=== PATIENT | male | born 1975 | race Caucasian/White ===

== ENCOUNTER 2016-08-11 22:49 | Emergency (ER) | payer BC ==
[~2016-08-11] VITALS: Ht 175.3 cm; Wt 99.8 kg
[2016-08-12] MEDS ORDERED: fentaNYL PF VIAL 100 MCG/2 ML VIAL IV PRN (00:45)
[2016-08-12] MEDS ORDERED: IV NORMAL SALINE 1000ML BAG 1,000 ML IV SCH (01:00)
--- NOTE | 2016-08-12 01:20 | PHYS DOC ---
Past Medical History Past Medical History: Diabetes-Type II, Hypertension Past Surgical History: Tonsillectomy Alcohol Use: None Drug Use: None Adult General Chief Complaint Chief Complaint: TOE PROBLEM HPI HPI Patient is a 41 year old male who presents with complaint of infection to his right second toe. Patient states that he started noticing problems at the toe approximately one week ago. Patient states that he started having an area of redness at the tip of his toe. Patient states that after week he has been having worsening redness and ulceration that is formed along the end of his toe. Patient has had discoloration that extends towards the base of his right second toe. Patient states over the past few days he has been developing body aches, chills, and has had subjective fevers. Patient denies chest pain or abdominal pain and has had no nausea or vomiting. Patient is type II diabetic and states that his sugars have been running in the "120s." Patient has not taken any medications to help with the symptoms at this time. Review of Systems Review of Systems Constitutional: Subjective fever, chills [] Eyes: Denies change in visual acuity, redness, or eye pain [] HENT: Denies nasal congestion or sore throat [] Respiratory: Denies cough or shortness of breath [] Cardiovascular: Denies chest pain or edema [] GI: Denies abdominal pain, nausea, vomiting, bloody stools or diarrhea [] : Denies dysuria or hematuria [] Musculoskeletal: Pain to right second toe, bodyaches [] Integument: Denies rash or skin lesions [] Neurologic: Denies headache, focal weakness or sensory changes [] Current Medications Current Medications Current Medications Medications (Trade) Dose Ordered Sig/Sumi Start Time Stop Time Status Last Admin Dose Admin Cephalexin HCl (Keflex) 500 mg 1X ONCE 08/12/16 03:30 08/12/16 03:31 DC 08/12/16 03:30 500 MG Doxycycline Hyclate (Vibra-Tab) 100 mg 1X ONCE 08/12/16 03:30 08/12/16 03:31 DC 08/12/16 03:30 100 MG Fentanyl Citrate (Fentanyl 2ml Vial) 50 mcg PRN Q15MIN PRN 08/12/16 00:45 08/12/16 03:43 DC 08/12/16 01:54 50 MCG Sodium Chloride (Iv Sodium Chloride 0.9% 1000ml Bag) 1,000 ml @ 1,000 mls/hr Q1H 08/12/16 01:00 08/12/16 01:59 DC 08/12/16 01:54 1,000 MLS/HR Allergies Allergies Allergies Coded Allergies Type Severity Reaction Last Updated Verified No Known Drug Allergies 08/11/16 No Physical Exam Physical Exam Constitutional: Alert, afebrile, no acute distress. [] HENT: Normocephalic, atraumatic, bilateral external ears normal, oropharynx moist, no oral exudates, nose normal. [] Eyes: PERRLA, EOMI, conjunctiva normal, no discharge. [] Neck: Normal range of motion, no tenderness, supple, no stridor. [] Cardiovascular: Tachycardia, regular rhythm, no murmur [] Lungs & Thorax: Bilateral breath sounds clear to auscultation [] Abdomen: Bowel sounds normal, soft, no tenderness, no masses, no pulsatile masses. [] Skin: Warm, dry, no erythema, no rash. [] Back: No tenderness, no CVA tenderness. [] Extremities: Distal ulceration to right second toe with redness and swelling extending proximally to the base of the right second toe, no swelling or lymphangitic streaking along the mid foot. [] Neurologic: Alert and oriented X 3, normal motor function, normal sensory function, no focal deficits noted. [] Current Patient Data Vital Signs Vital Signs Date Time Temp Pulse Resp B/P Pulse Ox O2 Delivery O2 Flow Rate FiO2 08/12/16 03:00 92 120/78 95 Room Air 08/11/16 23:40 98.4 98.4 08/11/16 22:54 16 Lab Values Laboratory Tests Test 08/12/16 00:59 08/12/16 02:47 White Blood Count 9.1x10^3/uL (4.0-11.0) Red Blood Count 5.01x10^6/uL (4.30-5.70) Hemoglobin 14.3g/dL (13.0-17.5) Hematocrit 41.7% (39.0-53.0) Mean Corpuscular Volume 83fL (79-100) Mean Corpuscular Hemoglobin 29pg (25-35) Mean Corpuscular Hemoglobin Concent 34g/dL (31-37) Red Cell Distribution Width 13.0% (11.5-14.5) Platelet Count 183x10^3/uL (140-400) Neutrophils (%) (Auto) 60% (31-73) Lymphocytes (%) (Auto) 28% (24-48) Monocytes (%) (Auto) 11% (0-9) H Eosinophils (%) (Auto) 1% (0-3) Basophils (%) (Auto) 1% (0-3) Neutrophils # (Auto) 5.4x10^3uL (1.8-7.7) Lymphocytes # (Auto) 2.6x10^3/uL (1.0-4.8) Monocytes # (Auto) 1.0x10^3/uL (0.0-1.1) Eosinophils # (Auto) 0.1x10^3/uL (0.0-0.7) Basophils # (Auto) 0.0x10^3/uL (0.0-0.2) Sodium Level 139mmol/L (136-145) Potassium Level 3.6mmol/L (3.5-5.1) Chloride Level 102mmol/L (98-107) Carbon Dioxide Level 30mmol/L (21-32) Anion Gap 7 (6-14) Blood Urea Nitrogen 19mg/dL (8-26) Creatinine 1.1mg/dL (0.7-1.3) Estimated GFR (Cockcroft-Gault) 74.5 BUN/Creatinine Ratio 17 (6-20) Glucose Level 174mg/dL (70-99) H Lactic Acid Level 0.9mmol/L (0.4-2.0) Calcium Level 8.8mg/dL (8.5-10.1) Total Bilirubin 1.4mg/dL (0.2-1.0) H Aspartate Amino Transferase (AST) 17U/L (15-37) Alanine Aminotransferase (ALT) 28U/L (16-63) Alkaline Phosphatase 63U/L (46-116) Total Protein 7.4g/dL (6.4-8.2) Albumin 3.5g/dL (3.4-5.0) Albumin/Globulin Ratio 0.9 (1.0-1.7) L Urine Collection Type Unknown Urine Color Yellow Urine Clarity Clear Urine pH 6.0 Urine Specific [place] >=1.030 Urine Protein Negativemg/dL (NEG-TRACE) Urine Glucose (UA) Negativemg/dL (NEG) Urine Ketones (Stick) Negativemg/dL (NEG) Urine Blood Negative (NEG) Urine Nitrite Negative (NEG) Urine Bilirubin Small (NEG) Urine Urobilinogen Dipstick 2.0mg/dL (0.2 mg/dL) Urine Leukocyte Esterase Negative (NEG) Urine RBC 0/HPF (0-2) Urine WBC Occ/HPF (0-4) Urine Squamous Epithelial Cells Few/LPF Urine Bacteria 0/HPF (0-FEW) Urine Mucus Marked/LPF Laboratory Tests 08/12/16 00:59 Laboratory Tests 08/12/16 00:59 EKG EKG Not performed [] Radiology/Procedures Radiology/Procedures 3 view right foot x-ray interpreted by me: Mild soft tissue swelling along second toe, no gas formation in soft tissues, no fractures [] Course & Med Decision Making Course & Med Decision Making Pertinent Labs and Imaging studies reviewed. (See chart for details) Patient was given IV fluids in the emergency department. The patient's blood work does not show evidence of sepsis at this time. Patient's diabetic ulcer is consistent with uncomplicated infected diabetic ulcer and is appropriate for outpatient treatment at this time. The patient was started on doxycycline and Keflex in the emergency department. Patient will continue on 10 day course of treatment. Advised follow-up with primary doctor in the next 3 days and return to emergency department for any worsening symptoms. Patient voiced understanding and in agreement with treatment plan. Dragon Disclaimer Dragon Disclaimer This electronic medical record was generated, in whole or in part, using a voice recognition dictation system. Departure Departure Impression: Primary Impression: Diabetic ulcer of toe Disposition: HOME, SELF-CARE Condition: STABLE Referrals: ISIS BENITEZ (PCP) Patient Instructions: Cellulitis, Skin Ulcer Additional Instructions: Follow-up in 3 days with your primary doctor. Return to the emergency department for any worsening symptoms. Scripts Cephalexin (Keflex)500 Mg [id number] Mg PO QID #40 CAP Prov:JESSICA DEVRIES MD 08/12/16 Doxycycline Hyclate 100 Mg Capsule1 Cap PO BID #20 CAP Prov:JESSICA DEVRIES MD 08/12/16 JESSICA DEVRIES MD Aug 12, 2016 01:20
[2016-08-12 01:21] LABS: RED BLOOD COUNT 5.01 x10^6/uL (4.30-5.70); WHITE BLOOD COUNT 9.1 x10^3/uL (4.0-11.0)
[2016-08-12 01:22] LABS: BASO % 1 % (0-3); EOS % 1 % (0-3); HEMATOCRIT 41.7 % (39.0-53.0); HEMOGLOBIN 14.3 g/dL (13.0-17.5); LYMPH # 2.6 x10^3/uL (1.0-4.8); LYMPH % 28 % (24-48); MEAN CORPUSCULAR HEMOGLOBIN 29 pg (25-35); MEAN CORPUSCULAR HGB CONC 34 g/dL (31-37); MEAN CORPUSCULAR VOLUME 83 fL (79-100); MONO % 11 % (0-9); NEUT % 60 % (31-73); PLATELET COUNT 183 x10^3/uL (140-400)
[2016-08-12 01:39] LABS: ALBUMIN 3.5 g/dL (3.4-5.0); ALBUMIN/GLOBULIN RATIO 0.9 (1.0-1.7); CALCIUM 8.8 mg/dL (8.5-10.1); TOTAL PROTEIN 7.4 g/dL (6.4-8.2)
[2016-08-12 01:40] LABS: CREATININE 1.1 mg/dL (0.7-1.3); GFR 74.5; POTASSIUM 3.6 mmol/L (3.5-5.1); TOTAL BILIRUBIN 1.4 mg/dL (0.2-1.0)
[2016-08-12 02:57] LABS: BILIRUBIN,URINE SMALL (NEG); GLUCOSE,URINE NEGATIVE (NEG); NITRITE,URINE NEGATIVE (NEG); PROTEIN,URINE NEGATIVE (NEG-TRACE)
[2016-08-12 02:59] LABS: BACTERIA,URINE 0 /HPF (0-FEW); RBC,URINE 0 /HPF (0-2); SQUAMOUS EPITHELIAL CELL,UR FEW /LPF; WBC,URINE OCC /HPF (0-4)
[2016-08-12 03:00] VITALS: BP 120/78
[2016-08-12] MEDS ORDERED: CEPH-264 PO (03:03)
[2016-08-12] MEDS ORDERED: DOXY100C2 PO (03:03)
[2016-08-12] MEDS ORDERED: CEPHALEXIN 250 MG CAPSULE. PO ONE (03:30)
[2016-08-12] MEDS ORDERED: DOXYCYCLINE HYCLATE 100 MG TABLET PO ONE (03:30)
--- NOTE | 2016-08-12 07:57 | RAD ---
Three-view study of the right foot Indications: Toe infection of the second digit. Findings: There is some soft tissue swelling of the second digit. No osteolysis is seen. No acute fracture or dislocation is seen. No soft tissue air is seen. IMPRESSION: No acute osseous abnormality is seen.
--- NOTE | 2016-08-13 07:40 | VNOTE ---
CALL BACK NOTE CALL BACK Microbiology 08/12/16 Blood Culture - Final, Complete Lab notified physician of prelim positive blood culture in 1 of 4 bottles; gram positive cocci in chains suggestive of staph. He was seen within past 12 hours in emergency department and discharged with antibiotics to follow up closely. Will await further cultures prior to call back as this is concerning for contamination. Sayra SONI MD Aug 13, 2016 07:40
--- NOTE | 2016-08-13 14:07 | VNOTE ---
CALL BACK NOTE CALL BACK Microbiology 08/12/16 Blood Culture - Final, Complete Second blood culture has come back concerning for staph. Called patient and notified of need for admission for diabetic foot ulcer with bacteremia and he agrees with this plan. Discussed case with Dr. Cleaning, who will admit. Discussed case with nursing enginehouse brakeman who confirms bed space. Discussed case with ED staff to assist direct admit. He will be directly admitted. Sayra SONI MD Aug 13, 2016 14:07
[2016-08-13] MEDS ORDERED: DULA0.75 SQ (15:12)
[2016-08-13] MEDS ORDERED: LISI-338 PO (15:12)
[2016-08-13] MEDS ORDERED: ATOR10TA60 PO (16:32)
== END 2016-08-12 03:42 | disposition home or self-care (01) ==
LOC: ER 22:49
DX: L97.519 Non-pressure chronic ulcer of other part of right foot with unspecified severity (principal); I10 Essential (primary) hypertension
CPT/HCPCS: 36415; 73630; 80053; 81001; 83605; 85027; 87040; 87205; 96361; 96374; 99285; J3010; J7030

== ENCOUNTER 2016-08-13 14:14 | Inpatient (IN) | payer BC ==
[~2016-08-13] VITALS: Ht 175.3 cm; Wt 98.9 kg
[~2016-08-13 14:14] MED LIST: CEPH-264 PO; DOXY100C2 PO
[2016-08-13 15:00] VITALS: BP 132/86
[2016-08-13] MEDS ORDERED: LISI-338 PO (15:12)
[2016-08-13] MEDS ORDERED: DULA0.75 SQ (15:12)
[2016-08-13] MEDS ORDERED: ATOR10TA60 PO (16:32)
[2016-08-13 16:40] LABS: BASO % 0 % (0-3); EOS % 2 % (0-3); HEMATOCRIT 49.4 % (39.0-53.0); HEMOGLOBIN 16.9 g/dL (13.0-17.5); LYMPH # 2.2 x10^3/uL (1.0-4.8); LYMPH % 27 % (24-48); MEAN CORPUSCULAR HEMOGLOBIN 29 pg (25-35); MEAN CORPUSCULAR HGB CONC 34 g/dL (31-37); MEAN CORPUSCULAR VOLUME 84 fL (79-100); MONO % 10 % (0-9); NEUT % 61 % (31-73); PLATELET COUNT 196 x10^3/uL (140-400); RED BLOOD COUNT 5.92 x10^6/uL (4.30-5.70); WHITE BLOOD COUNT 7.9 x10^3/uL (4.0-11.0)
[2016-08-13 16:53] LABS: C-REACTIVE PROTEIN 18.3 mg/L (0-3.3); CALCIUM 9.5 mg/dL (8.5-10.1); CREATININE 1.1 mg/dL (0.7-1.3); GFR 74.5
--- NOTE | 2016-08-13 16:55 | PDOC1 ---
History and Physical Family History Family History: Diabetes Social History ALCOHOL: none Drugs: None Current Medications Current Medications Current Medications Medications (Trade) Dose Ordered Sig/Sumi Start Time Stop Time Status Last Admin Dose Admin Ceftriaxone Sodium/Sodium Chloride (Rocephin/Iv Sodium Chloride 0.9% 50ml) 50 ml @ 100 mls/hr Q24H 08/13/16 16:00 08/13/16 16:12 100 MLS/HR Vancomycin HCl 1 each 1 each PRN DAILY PRN 08/13/16 15:15 Allergies Allergies Allergies Coded Allergies Type Severity Reaction Last Updated Verified No Known Drug Allergies 08/11/16 No ROS Review of System CONSTITUTIONAL: No fever or chills EYES: No recent changes SKIN: blisters in toe nails CARDIOVASCULAR: No chest pain, syncope, palpitations, or edema RESPIRATORY: No SOB or cough GASTROINTESTINAL: No nausea, vomiting or abdominal pain NEUROLOGICAL: No headaches or weakness ENDOCRINE: No cold or heat intolerance GENITOURINARY: No urgency or frequency of urination MUSCULOSKELETAL: No back pain or joint pain LYMPHATICS: No enlarged lymph nodes PSYCHIATRIC: No anxiety or depression Physical Exam Physical Exam GEN.: No apparent distress. Alert and oriented. HEENT: Head is normocephalic, atraumatic NECK: Supple. no JVD LUNGS: Clear to auscultation. normal airflow HEART: RRR, S1, S2 present. Peripheral pulses intact ABDOMEN: Soft, nontender. Positive bowel sounds. EXTREMITIES: R 2ng great toe, tip ulcer, no nail NEUROLOGIC: Normal speech, normal tone PSYCHIATRIC: Normal affect, normal mood. SKIN: Vitals Vitals Vital Signs Date Time Temp Pulse Resp B/P Pulse Ox O2 Delivery O2 Flow Rate FiO2 08/13/16 15:00 98.2 104 18 132/86 100 Room Air 98.2 Labs Labs Laboratory Tests Test 08/13/16 16:20 08/13/16 16:22 White Blood Count 7.9x10^3/uL (4.0-11.0) Red Blood Count 5.92x10^6/uL (4.30-5.70) Hemoglobin 16.9g/dL (13.0-17.5) Hematocrit 49.4% (39.0-53.0) Mean Corpuscular Volume 84fL (79-100) Mean Corpuscular Hemoglobin 29pg (25-35) Mean Corpuscular Hemoglobin Concent 34g/dL (31-37) Red Cell Distribution Width 13.0% (11.5-14.5) Platelet Count 196x10^3/uL (140-400) Neutrophils (%) (Auto) 61% (31-73) Lymphocytes (%) (Auto) 27% (24-48) Monocytes (%) (Auto) 10% (0-9) Eosinophils (%) (Auto) 2% (0-3) Basophils (%) (Auto) 0% (0-3) Neutrophils # (Auto) 4.8x10^3uL (1.8-7.7) Lymphocytes # (Auto) 2.2x10^3/uL (1.0-4.8) Monocytes # (Auto) 0.8x10^3/uL (0.0-1.1) Eosinophils # (Auto) 0.2x10^3/uL (0.0-0.7) Basophils # (Auto) 0.0x10^3/uL (0.0-0.2) Glucose (Fingerstick) 140mg/dL (70-99) Laboratory Tests Test 08/13/16 16:20 08/13/16 16:22 White Blood Count 7.9x10^3/uL (4.0-11.0) Red Blood Count 5.92x10^6/uL (4.30-5.70) Hemoglobin 16.9g/dL (13.0-17.5) Hematocrit 49.4% (39.0-53.0) Mean Corpuscular Volume 84fL (79-100) Mean Corpuscular Hemoglobin 29pg (25-35) Mean Corpuscular Hemoglobin Concent 34g/dL (31-37) Red Cell Distribution Width 13.0% (11.5-14.5) Platelet Count 196x10^3/uL (140-400) Neutrophils (%) (Auto) 61% (31-73) Lymphocytes (%) (Auto) 27% (24-48) Monocytes (%) (Auto) 10% (0-9) Eosinophils (%) (Auto) 2% (0-3) Basophils (%) (Auto) 0% (0-3) Neutrophils # (Auto) 4.8x10^3uL (1.8-7.7) Lymphocytes # (Auto) 2.2x10^3/uL (1.0-4.8) Monocytes # (Auto) 0.8x10^3/uL (0.0-1.1) Eosinophils # (Auto) 0.2x10^3/uL (0.0-0.7) Basophils # (Auto) 0.0x10^3/uL (0.0-0.2) Glucose (Fingerstick) 140mg/dL (70-99) VTE Prophylaxis Ordered VTE Prophylaxis Devices: Yes VTE Pharmacological Prophylaxi: Yes MARLON ROSA MD Aug 13, 2016 16:54
[2016-08-13] MEDS: INSULIN ASPART 300 UNITS/3 ML INSULN.PEN SQ SCH (16:57)
[2016-08-13] MEDS ORDERED: ONDANSETRON PF 4 MG/2 ML VIAL. IV PRN (17:00)
[2016-08-13] MEDS ORDERED: DEXTROSE 50% 25 GM / 50ML DISP.SYRIN. IV PRN (17:00)
[2016-08-13] MEDS ORDERED: ALBUTEROL SULFATE 2.5 MG/3 ML NEBU. NEB PRN (17:00)
[2016-08-13] MEDS ORDERED: hydrALAZINE 20 MG/ML VIAL. IVP PRN (17:00)
[2016-08-13] MEDS ORDERED: VANCOMYCIN 2 GM in IV NORMAL SALINE 500ML BAG 500 ML IV ONE (17:00)
[2016-08-13] MEDS ORDERED: ACETAMINOPHEN 325 MG TABLET. PO PRN (17:00)
[2016-08-13] MEDS ORDERED: HYDROCODONE/APAP 5/325MG TABLET. PO PRN (17:00)
[2016-08-13] MEDS: ENOXAPARIN 40 MG/0.4 ML SYRINGE. SQ SCH (17:11)
[2016-08-13] MEDS: VANCOMYCIN PER PHARMACY MC PRN (17:25)
--- NOTE | 2016-08-13 18:14 | HP ---
ADMIT DATE: 08/13/2016 CHIEF COMPLAINT: Diabetic foot ulcer with positive bacteremia. HISTORY OF THE PRESENT ILLNESS: A 41-year-old male patient who presented to [facility] ER 2 days ago for right toe diabetic foot ulcer. At that time, he had blood cultures drawn which were positive for gram-positive bacteremia suggesting Staphylococcus, and the patient was requested to come to the hospital for IV antibiotics. Reportedly, the patient has a few weeks of right toe ulcer developing as blisters and healing which has been happening for a long time. However, on the second toe, he lost his nail, and the wound got worse within a couple of days. He denies any fevers or chills. However, his diabetes is not controlled. HbA1c is probably more than 10, and average blood sugars around 250. He also has a history of hypertension. He is not taking any insulin currently. He is taking medications once a week. PAST MEDICAL HISTORY: Hypertension and diabetes. PERSONAL HISTORY: No smoking, no alcohol, no drug abuse. FAMILY HISTORY: Mother had diabetes. ALLERGIES: NKDA. REVIEW OF SYSTEMS: Please see my electronic H and P. PHYSICAL EXAMINATION: Please see my electronic H and P. LABORATORY FINDINGS: CBC within normal limits. Chemistries: Blood sugars 140. ESR, CRP, and HbA1c are pending. ASSESSEMENT AND PLAN: 1. Diabetic second toe ulcer with positive bacteremia, suspected Staphylococcus aureus. 2. Type 2 diabetes mellitus. 3. Hypertension. PLAN: 1. He has been admitted for IV antibiotics. He was started on vancomycin renal dosing and Infectious Disease was consulted, and also we will start him on IV Rocephin. 2. HbA1c and BMP are pending. 3. Foot x-ray is ordered. 4. Wound team is consulted. 5. Pain control with hydrocodone p.r.n. 6. Deep venous thrombosis prophylaxis with Lovenox. 7. Sliding scale insulin for hyperglycemia and hold home medications. 8. P.r.n. hydralazine for hypertension. 9. Plan was explained to the patient and family members who are at bedside. Agreed with the current plan. MARLON RSOA MD DR: AMADOU/tamra JOB#: [id number] / [id number]
[2016-08-13 19:00] VITALS: BP 131/81
[2016-08-13] MEDS: ATORVASTATIN CALCIUM 10 MG TABLET. PO SCH (21:30)
[2016-08-13 23:00] VITALS: BP 106/65
[2016-08-14] MEDS: VANCOMYCIN 1.5 GM in IV NORMAL SALINE 500ML BAG 500 ML IV SCH ×4 (00:58→17:51)
[2016-08-14 03:00] VITALS: BP 97/67
[2016-08-14] MEDS ORDERED: diphenhydrAMINE HCL 25 MG CAPSULE PO ONE (04:15)
[2016-08-14 05:15] LABS: BASO % 0 % (0-3); EOS % 3 % (0-3); HEMATOCRIT 42.7 % (39.0-53.0); HEMOGLOBIN 14.7 g/dL (13.0-17.5); LYMPH # 2.4 x10^3/uL (1.0-4.8); LYMPH % 36 % (24-48); MEAN CORPUSCULAR HEMOGLOBIN 28 pg (25-35); MEAN CORPUSCULAR HGB CONC 34 g/dL (31-37); MEAN CORPUSCULAR VOLUME 83 fL (79-100); MONO % 9 % (0-9); NEUT % 52 % (31-73); PLATELET COUNT 191 x10^3/uL (140-400); RED BLOOD COUNT 5.17 x10^6/uL (4.30-5.70); RED CELL DISTRIBUTION WIDTH 13.2 % (11.5-14.5); WHITE BLOOD COUNT 6.7 x10^3/uL (4.0-11.0)
[2016-08-14 05:54] LABS: CALCIUM 8.7 mg/dL (8.5-10.1); CREATININE 0.9 mg/dL (0.7-1.3); GFR 93.9; POTASSIUM 4.2 mmol/L (3.5-5.1)
[2016-08-14 07:00] VITALS: BP 109/71
--- NOTE | 2016-08-14 08:23 | ACF ---
Admission Forms Criteria WOUND COMPLICATIONS Clinical Indications for Inpatient Care (Place 'X' for any and all applicable criteria): Ongoing inpatient care may be indicated for wound complications with ANY ONE of the following (1) (15): [X]I. Infection with ANY ONE of the following(32)(33): [ ]a) Temperature greater than 38.5 C (101.3 F) [ ]b) Evidence of tissue necrosis [ ]c) Erythema diameter expanding around wound despite treatment [ ]d) Mental status changes [ ]e) Dehydration [ ]f) Bacteremia [ ]g) Hemodynamic instability [ ]h) Suspected necrotizing fasciitis [ ]i) Rapidly spreading lesions [ ]j) High-risk location (eg, perineum, sternum, orbit) [X]k) High-risk coexisting clinical condition as indicated by ANY ONE of the following: [X]i) Poorly controlled diabetes [ ]ii) Cirrhosis [ ]iii) Renal failure [ ]iv) Neutropenia [ ] v) Asplenia [ ]vi) Immunosuppression (eg, AIDS, chronic corticosteroid use) [ ]viii) Other high-risk medical comorbidities [ ] II. Dehiscence requiring frequent monitoring or immediate treatment [ ] III. Hematoma with ANY ONE of the following: [ ]a) Hemodynamic instability or acute anemia due to rapid development of hematoma [ ]b) Neck hematoma causing airway compression [ ]c) Retroperitoneal hematoma [ ]d) Uncontrolled coagulopathy [ ]IV. Seroma with evidence of secondary infection and requirement for IV antibiotics [D](31) [ ]V. Pain that cannot be managed at lower level of care Extended stay beyond goal length of stay for primary condition may be needed until ALL of the following are present(1)(33)(34): [ ]a) Afebrile or fever resolving [ ]b) Hemodynamic stability [ ]c) Pain resolving [ ]d) Wound closed, continuity adequately restored, or wound manageable at lower level of care [ ]e) No drain needed or drain care manageable at lower level of care [ ]f) Wound hematoma or seroma resolving [ ]g) Antibiotics not needed or regimen manageable at lower level of care(38) [ ]h) Dressing care manageable at lower level of care [ ]i) Coagulopathy absent, resolved, or treatable at lower level of care [ ]j) Medical comorbidities resolved or treatable at lower level of care The original [employer] content created by [facility] has been revised. The portions of the content which have been revised are identified through the use of italic text or in bold, and [facility] has neither reviewed nor approved the modified material. All other unmodified content is copyright [facility]. Please see references footnoted in the original [facility] edition 2016 Admission Criteria Met?: Yes BRENDA FAM August 14, 2016 08:22
--- NOTE | 2016-08-14 08:48 | RAD ---
Right foot, 3 views, 08/13/2016: History: Second toe ulcer No fracture or destructive bony lesion is seen. There are mild degenerative changes at the midfoot level. There is mild subcutaneous edema about the foot. IMPRESSION: No acute bony abnormality is detected.
[2016-08-14] MEDS: LISINOPRIL 5 MG TABLET. PO SCH (10:24)
--- NOTE | 2016-08-14 10:28 | PDOC ---
Infectious Disease Note Vital Sign Vital Signs Vital Signs Date Time Temp Pulse Resp B/P Pulse Ox O2 Delivery O2 Flow Rate FiO2 08/14/16 07:30 Room Air 08/14/16 07:00 97.5 80 16 109/71 96 97.5 Labs Lab Laboratory Tests Test 08/13/16 16:20 08/13/16 16:22 08/13/16 20:40 08/14/16 04:05 White Blood Count 7.9x10^3/uL (4.0-11.0) 6.7x10^3/uL (4.0-11.0) Red Blood Count 5.92x10^6/uL (4.30-5.70) 5.17x10^6/uL (4.30-5.70) Hemoglobin 16.9g/dL (13.0-17.5) 14.7g/dL (13.0-17.5) Hematocrit 49.4% (39.0-53.0) 42.7% (39.0-53.0) Mean Corpuscular Volume 84fL (79-100) 83fL (79-100) Mean Corpuscular Hemoglobin 29pg (25-35) 28pg (25-35) Mean Corpuscular Hemoglobin Concent 34g/dL (31-37) 34g/dL (31-37) Red Cell Distribution Width 13.0% (11.5-14.5) 13.2% (11.5-14.5) Platelet Count 196x10^3/uL (140-400) 191x10^3/uL (140-400) Neutrophils (%) (Auto) 61% (31-73) 52% (31-73) Lymphocytes (%) (Auto) 27% (24-48) 36% (24-48) Monocytes (%) (Auto) 10% (0-9) 9% (0-9) Eosinophils (%) (Auto) 2% (0-3) 3% (0-3) Basophils (%) (Auto) 0% (0-3) 0% (0-3) Neutrophils # (Auto) 4.8x10^3uL (1.8-7.7) 3.4x10^3uL (1.8-7.7) Lymphocytes # (Auto) 2.2x10^3/uL (1.0-4.8) 2.4x10^3/uL (1.0-4.8) Monocytes # (Auto) 0.8x10^3/uL (0.0-1.1) 0.6x10^3/uL (0.0-1.1) Eosinophils # (Auto) 0.2x10^3/uL (0.0-0.7) 0.2x10^3/uL (0.0-0.7) Basophils # (Auto) 0.0x10^3/uL (0.0-0.2) 0.0x10^3/uL (0.0-0.2) Erythrocyte Sedimentation Rate 12 (0-15) Sodium Level 139mmol/L (136-145) 142mmol/L (136-145) Potassium Level 4.0mmol/L (3.5-5.1) 4.2mmol/L (3.5-5.1) Chloride Level 103mmol/L (98-107) 106mmol/L (98-107) Carbon Dioxide Level 28mmol/L (21-32) 27mmol/L (21-32) Anion Gap 8 (6-14) 9 (6-14) Blood Urea Nitrogen 15mg/dL (8-26) 18mg/dL (8-26) Creatinine 1.1mg/dL (0.7-1.3) 0.9mg/dL (0.7-1.3) Estimated GFR (Cockcroft-Gault) 74.5 93.9 Glucose Level 137mg/dL (70-99) 161mg/dL (70-99) Calcium Level 9.5mg/dL (8.5-10.1) 8.7mg/dL (8.5-10.1) C-Reactive Protein, Quantitative 18.3mg/L (0-3.3) Glucose (Fingerstick) 140mg/dL (70-99) 188mg/dL (70-99) Test 08/14/16 07:23 Glucose (Fingerstick) 169mg/dL (70-99) Objective Assessment Rt second toe callous with ulcer and infection Rt second toe cellulitis with lymphangitic spread BC + G + cocci DM with poor control Plan Plan of Care vanc , ceftriaxone bs control mri toe to rule out osteo in very detail discussion done with pt and DONYA JARAMILLO MD August 14, 2016 10:28
[2016-08-14] MEDS: INSULIN ASPART 300 UNITS/3 ML INSULN.PEN SQ SCH ×3 (10:34→17:00)
[2016-08-14 11:00] VITALS: BP 117/80
--- NOTE | 2016-08-14 13:13 | PDOC ---
PROGRESS NOTES Chief Complaint Chief Complaint 1. Diabetic second toe ulcer with positive bacteremia, suspected Staphylococcus aureus. 2. Type 2 diabetes mellitus. 3. Hypertension. plan: fu with id MRI toe on ceftriaxone and vanco fu with bcx sen dm control wound care dvt ppx History of Present Illness History of Present Illness right toe pain Vitals Vitals Vital Signs Date Time Temp Pulse Resp B/P Pulse Ox O2 Delivery O2 Flow Rate FiO2 08/14/16 11:00 97.9 88 16 117/80 97 Room Air 97.9 Physical Exam General: Alert, Oriented X3, Cooperative Heart: Regular rate, Normal S1, Normal S2 Lungs: Clear Abdomen: Normal bowel sounds Extremities: Other (right 2nd toe with erythema, and ulcer) Labs LABS Laboratory Tests Test 08/13/16 16:20 08/13/16 16:22 08/13/16 20:40 08/14/16 04:05 White Blood Count 7.9x10^3/uL (4.0-11.0) 6.7x10^3/uL (4.0-11.0) Red Blood Count 5.92x10^6/uL (4.30-5.70) 5.17x10^6/uL (4.30-5.70) Hemoglobin 16.9g/dL (13.0-17.5) 14.7g/dL (13.0-17.5) Hematocrit 49.4% (39.0-53.0) 42.7% (39.0-53.0) Mean Corpuscular Volume 84fL (79-100) 83fL (79-100) Mean Corpuscular Hemoglobin 29pg (25-35) 28pg (25-35) Mean Corpuscular Hemoglobin Concent 34g/dL (31-37) 34g/dL (31-37) Red Cell Distribution Width 13.0% (11.5-14.5) 13.2% (11.5-14.5) Platelet Count 196x10^3/uL (140-400) 191x10^3/uL (140-400) Neutrophils (%) (Auto) 61% (31-73) 52% (31-73) Lymphocytes (%) (Auto) 27% (24-48) 36% (24-48) Monocytes (%) (Auto) 10% (0-9) 9% (0-9) Eosinophils (%) (Auto) 2% (0-3) 3% (0-3) Basophils (%) (Auto) 0% (0-3) 0% (0-3) Neutrophils # (Auto) 4.8x10^3uL (1.8-7.7) 3.4x10^3uL (1.8-7.7) Lymphocytes # (Auto) 2.2x10^3/uL (1.0-4.8) 2.4x10^3/uL (1.0-4.8) Monocytes # (Auto) 0.8x10^3/uL (0.0-1.1) 0.6x10^3/uL (0.0-1.1) Eosinophils # (Auto) 0.2x10^3/uL (0.0-0.7) 0.2x10^3/uL (0.0-0.7) Basophils # (Auto) 0.0x10^3/uL (0.0-0.2) 0.0x10^3/uL (0.0-0.2) Erythrocyte Sedimentation Rate 12 (0-15) Sodium Level 139mmol/L (136-145) 142mmol/L (136-145) Potassium Level 4.0mmol/L (3.5-5.1) 4.2mmol/L (3.5-5.1) Chloride Level 103mmol/L (98-107) 106mmol/L (98-107) Carbon Dioxide Level 28mmol/L (21-32) 27mmol/L (21-32) Anion Gap 8 (6-14) 9 (6-14) Blood Urea Nitrogen 15mg/dL (8-26) 18mg/dL (8-26) Creatinine 1.1mg/dL (0.7-1.3) 0.9mg/dL (0.7-1.3) Estimated GFR (Cockcroft-Gault) 74.5 93.9 Glucose Level 137mg/dL (70-99) 161mg/dL (70-99) Calcium Level 9.5mg/dL (8.5-10.1) 8.7mg/dL (8.5-10.1) C-Reactive Protein, Quantitative 18.3mg/L (0-3.3) Glucose (Fingerstick) 140mg/dL (70-99) 188mg/dL (70-99) Test 08/14/16 07:23 08/14/16 11:48 Glucose (Fingerstick) 169mg/dL (70-99) 161mg/dL (70-99) Review of Systems Review of Systems no fever, chills, sob or chest pain Comment Review of Relevant I have reviewed the following items hima (where applicable) has been applied. Labs Laboratory Tests Test 08/13/16 16:20 08/13/16 16:22 08/13/16 20:40 08/14/16 04:05 White Blood Count 7.9x10^3/uL (4.0-11.0) 6.7x10^3/uL (4.0-11.0) Red Blood Count 5.92x10^6/uL (4.30-5.70) 5.17x10^6/uL (4.30-5.70) Hemoglobin 16.9g/dL (13.0-17.5) 14.7g/dL (13.0-17.5) Hematocrit 49.4% (39.0-53.0) 42.7% (39.0-53.0) Mean Corpuscular Volume 84fL (79-100) 83fL (79-100) Mean Corpuscular Hemoglobin 29pg (25-35) 28pg (25-35) Mean Corpuscular Hemoglobin Concent 34g/dL (31-37) 34g/dL (31-37) Red Cell Distribution Width 13.0% (11.5-14.5) 13.2% (11.5-14.5) Platelet Count 196x10^3/uL (140-400) 191x10^3/uL (140-400) Neutrophils (%) (Auto) 61% (31-73) 52% (31-73) Lymphocytes (%) (Auto) 27% (24-48) 36% (24-48) Monocytes (%) (Auto) 10% (0-9) 9% (0-9) Eosinophils (%) (Auto) 2% (0-3) 3% (0-3) Basophils (%) (Auto) 0% (0-3) 0% (0-3) Neutrophils # (Auto) 4.8x10^3uL (1.8-7.7) 3.4x10^3uL (1.8-7.7) Lymphocytes # (Auto) 2.2x10^3/uL (1.0-4.8) 2.4x10^3/uL (1.0-4.8) Monocytes # (Auto) 0.8x10^3/uL (0.0-1.1) 0.6x10^3/uL (0.0-1.1) Eosinophils # (Auto) 0.2x10^3/uL (0.0-0.7) 0.2x10^3/uL (0.0-0.7) Basophils # (Auto) 0.0x10^3/uL (0.0-0.2) 0.0x10^3/uL (0.0-0.2) Erythrocyte Sedimentation Rate 12 (0-15) Sodium Level 139mmol/L (136-145) 142mmol/L (136-145) Potassium Level 4.0mmol/L (3.5-5.1) 4.2mmol/L (3.5-5.1) Chloride Level 103mmol/L (98-107) 106mmol/L (98-107) Carbon Dioxide Level 28mmol/L (21-32) 27mmol/L (21-32) Anion Gap 8 (6-14) 9 (6-14) Blood Urea Nitrogen 15mg/dL (8-26) 18mg/dL (8-26) Creatinine 1.1mg/dL (0.7-1.3) 0.9mg/dL (0.7-1.3) Estimated GFR (Cockcroft-Gault) 74.5 93.9 Glucose Level 137mg/dL (70-99) 161mg/dL (70-99) Calcium Level 9.5mg/dL (8.5-10.1) 8.7mg/dL (8.5-10.1) C-Reactive Protein, Quantitative 18.3mg/L (0-3.3) Glucose (Fingerstick) 140mg/dL (70-99) 188mg/dL (70-99) Test 08/14/16 07:23 08/14/16 11:48 Glucose (Fingerstick) 169mg/dL (70-99) 161mg/dL (70-99) Laboratory Tests Test 08/13/16 16:20 08/13/16 16:22 08/13/16 20:40 08/14/16 04:05 White Blood Count 7.9x10^3/uL (4.0-11.0) 6.7x10^3/uL (4.0-11.0) Red Blood Count 5.92x10^6/uL (4.30-5.70) 5.17x10^6/uL (4.30-5.70) Hemoglobin 16.9g/dL (13.0-17.5) 14.7g/dL (13.0-17.5) Hematocrit 49.4% (39.0-53.0) 42.7% (39.0-53.0) Mean Corpuscular Volume 84fL (79-100) 83fL (79-100) Mean Corpuscular Hemoglobin 29pg (25-35) 28pg (25-35) Mean Corpuscular Hemoglobin Concent 34g/dL (31-37) 34g/dL (31-37) Red Cell Distribution Width 13.0% (11.5-14.5) 13.2% (11.5-14.5) Platelet Count 196x10^3/uL (140-400) 191x10^3/uL (140-400) Neutrophils (%) (Auto) 61% (31-73) 52% (31-73) Lymphocytes (%) (Auto) 27% (24-48) 36% (24-48) Monocytes (%) (Auto) 10% (0-9) 9% (0-9) Eosinophils (%) (Auto) 2% (0-3) 3% (0-3) Basophils (%) (Auto) 0% (0-3) 0% (0-3) Neutrophils # (Auto) 4.8x10^3uL (1.8-7.7) 3.4x10^3uL (1.8-7.7) Lymphocytes # (Auto) 2.2x10^3/uL (1.0-4.8) 2.4x10^3/uL (1.0-4.8) Monocytes # (Auto) 0.8x10^3/uL (0.0-1.1) 0.6x10^3/uL (0.0-1.1) Eosinophils # (Auto) 0.2x10^3/uL (0.0-0.7) 0.2x10^3/uL (0.0-0.7) Basophils # (Auto) 0.0x10^3/uL (0.0-0.2) 0.0x10^3/uL (0.0-0.2) Erythrocyte Sedimentation Rate 12 (0-15) Sodium Level 139mmol/L (136-145) 142mmol/L (136-145) Potassium Level 4.0mmol/L (3.5-5.1) 4.2mmol/L (3.5-5.1) Chloride Level 103mmol/L (98-107) 106mmol/L (98-107) Carbon Dioxide Level 28mmol/L (21-32) 27mmol/L (21-32) Anion Gap 8 (6-14) 9 (6-14) Blood Urea Nitrogen 15mg/dL (8-26) 18mg/dL (8-26) Creatinine 1.1mg/dL (0.7-1.3) 0.9mg/dL (0.7-1.3) Estimated GFR (Cockcroft-Gault) 74.5 93.9 Glucose Level 137mg/dL (70-99) 161mg/dL (70-99) Calcium Level 9.5mg/dL (8.5-10.1) 8.7mg/dL (8.5-10.1) C-Reactive Protein, Quantitative 18.3mg/L (0-3.3) Glucose (Fingerstick) 140mg/dL (70-99) 188mg/dL (70-99) Test 08/14/16 07:23 08/14/16 11:48 Glucose (Fingerstick) 169mg/dL (70-99) 161mg/dL (70-99) Medications Current Medications Vancomycin HCl 1 each 1 each PRN DAILY PRN MC SEE COMMENTS Last administered on 08/13/16t 17:25; Start 08/13/16 at 15:15 Ceftriaxone Sodium/Sodium Chloride (Rocephin/Iv Sodium Chloride 0.9% 50ml) 50 ml @ 100 mls/hr Q24H IV Last administered on 08/13/16 16:12; Start 08/13/16 at 16:00 Insulin Aspart (Novolog) 0-9 UNITS TIDWMEALS SQ Last administered on 08/14/16 12:30; Start 08/13/16 at 17:00 Dextrose (Dextrose 50%-Water Syringe) 12.5 gm PRN Q15MIN PRN IV SEE COMMENTS; Start 08/13/16 at 17:00 Acetaminophen (Tylenol) 325 mg PRN Q6HRS PRN PO MILD PAIN / TEMP; Start at 17:00 Acetaminophen/ Hydrocodone Bitart (Lortab 5/325) 1 tab PRN Q6HRS PRN PO MODERATE TO SEVERE PAIN; Start 08/13/16 at 17:00 Hydralazine HCl (Apresoline) 10 mg PRN Q4HRS PRN IVP ELEVATED BP, SEE COMMENTS ; Start 08/13/16 at 17:00 Ondansetron HCl (Zofran) 4 mg PRN Q8HRS PRN IV NAUSEA/VOMITING; Start 08/13/16 at 17:00 Albuterol Sulfate 2.5 mg 2.5 mg PRN Q4HRS PRN NEB SHORTNESS OF BREATH; Start at 17:00 Vancomycin HCl/ Sodium Chloride (Iv Sodium Chloride 0.9% 500ml Bag) 500 ml @ 250 mls/hr 1X ONCE IV Last administered on 08/13/16 17:11; Start 08/13/16 at 17:00; Stop 08/13/16 at 18:59; Status DC Enoxaparin Sodium (Lovenox 40mg Syringe) 40 mg Q24H SQ Last administered on 17:11; Start 08/13/16 at 17:00 Atorvastatin Calcium (Lipitor) 10 mg HS PO Last administered on 08/13/16 21:30 ; Start 08/13/16 at 21:00 Lisinopril 5 mg 5 mg DAILY PO Last administered on 08/14/16 10:24; Start at 09:00 Vancomycin HCl/ Sodium Chloride (Iv Sodium Chloride 0.9% 500ml Bag) 500 ml @ 250 mls/hr Q8H IV Last administered on 08/14/16 10:24; Start 08/14/16 at 01:00 Vancomycin HCl 1 each 1X ONCE MC ; Start 08/14/16 at 16:30; Stop 08/14/16 at 16: 31 Diphenhydramine HCl (Benadryl) 25 mg 1X ONCE PO Last administered on 08/14/16 04:02; Start 08/14/16 at 04:15; Stop 08/14/16 at 04:16; Status DC Active Scripts Active Keflex (Cephalexin) 500 Mg Capsule 500 Mg PO QID Doxycycline Hyclate 100 Mg Capsule 1 Cap PO BID Reported Atorvastatin Calcium 10 Mg Tablet 10 Mg PO HS Lisinopril 5 Mg Tablet 5 Mg PO DAILY Trulicity (Dulaglutide) 0.75 Mg/0.5 Ml Pen.injctr 0.75 Mg SQ WEEKLY Vitals/I & O Vital Sign - Last 24 Hours 08/13/16 08/13/16 08/13/16 08/13/16 15:00 19:00 20:00 23:00 Temp 98.2 98.4 98.1 98.2 98.4 98.1 Pulse 104 108 101 Resp 18 18 18 B/P 132/86 131/81 106/65 Pulse Ox 100 97 97 O2 Delivery Room Air Room Air Room Air Room Air 08/14/16 08/14/16 08/14/16 08/14/16 03:00 07:00 07:30 10:24 Temp 98.2 97.5 98.2 97.5 Pulse 91 80 80 Resp 18 16 B/P 97/67 109/71 109/79 Pulse Ox 94 96 O2 Delivery Room Air Room Air Room Air 08/14/16 11:00 Temp 97.9 97.9 Pulse 88 Resp 16 B/P 117/80 Pulse Ox 97 O2 Delivery Room Air Intake and Output 08/13/16 08/13/16 08/14/16 14:59 22:59 06:59 Intake Total 900 ml 250 ml Balance 900 ml 250 ml FRANCES OLIVO MD August 14, 2016 13:13
[2016-08-14] MEDS ORDERED: GADOBUTROL 10 MMOL/10 ML VIAL IV ONE (14:00)
--- NOTE | 2016-08-14 15:59 | RAD ---
PROCEDURE HISTORY Nonhealing ulcer at the tip of the 2nd toe. No surgery. TECHNIQUE 10 cc Gadovist. COMPARISON None FINDINGS Abnormal marrow edema signal involving the distal phalanx of the 2nd toe with diffuse enhancement. T1 weighted images demonstrate corresponding loss of fatty marrow signal. Findings are compatible with osteomyelitis, in this clinical context. There is mild soft tissue edema and enhancement of the 1st toe and to a lesser extent the distal foot. No evidence of an organized abscess. Visualized tendons are intact. No significant tendon sheath fluid. Lisfranc ligament complex is intact. IMPRESSION Findings compatible with osteomyelitis the distal phalanx of the 2nd toe. Mild soft tissue edema or cellulitis, but no organized soft tissue abscess. Electronically signed by: Vitaly Wheeler MD (August 14, 2016 15:58:24)
[2016-08-14] MEDS: ENOXAPARIN 40 MG/0.4 ML SYRINGE. SQ SCH (17:00)
[2016-08-14] MEDS: VANCOMYCIN PER PHARMACY MC PRN (18:17)
[2016-08-14 19:30] VITALS: BP 134/84
[2016-08-14] MEDS ORDERED: INSULIN ASPART 300 UNITS/3 ML INSULN.PEN SQ ONE (22:00)
[2016-08-14] MEDS: ATORVASTATIN CALCIUM 10 MG TABLET. PO SCH (22:21)
[2016-08-14] MEDS: INSULIN DETEMIR 300 UNITS/3 ML INSULN.PEN. SQ SCH (22:26)
[2016-08-14 23:09] VITALS: BP 132/86
--- NOTE | 2016-08-15 02:02 | CONS ---
DATE OF CONSULTATION: 08/14/2016 REQUESTING PHYSICIAN: Dr. Cleaning. REASON FOR CONSULTATION: Blood culture positive and right second toe wound. HISTORY OF PRESENT ILLNESS: This is a 41-year-old gentleman who was seen in the ER with right foot wound and was discharged. The patient had a low grade fever then, he says. The patient was called in because the blood culture turned positive. The patient has this callus and ulcer on the right second toe for a while and then started having drainage and redness started spreading to the toe and into the foot. The patient is currently on vancomycin and Rocephin. The patient did have vancomycin Red man syndrome and now he has been slowed down and he is fine, does not have any rash. Denies any nausea, vomiting, diarrhea, chest pain, shortness of breath, abdominal pain, urinary symptoms or bowel symptoms. His blood sugars have not been under control until the last 2 or 3 weeks. Before that, he was running on an average 250. PAST MEDICAL HISTORY: Positive for hypertension, diabetes. SOCIAL HISTORY: Negative for smoking, alcohol or illicit drug use. ALLERGIES: No known drug allergies. CURRENT MEDICATIONS: Reviewed. REVIEW OF SYSTEMS: As per HPI. All other systems reviewed are negative. PHYSICAL EXAMINATION: GENERAL: Alert, oriented gentleman, not in any distress. VITAL SIGNS: Stable, afebrile. HEENT: NAD. NECK: Supple, no JVP. No lymphadenopathy. LUNGS: Clear. HEART: S1, S2 regular. ABDOMEN: Benign. EXTREMITIES: No edema or cyanosis. SKIN: Unremarkable except the right second toe is red. The foot redness has improved. The patient has a callus at the tip with ulcer. The depth cannot be judged, most likely does not have osteomyelitis and the nail has been destroyed. NEUROLOGIC: The patient is neurologically intact. LABORATORY DATA: White count is normal. Sed rate is 12. BUN and creatinine is normal. Foot actually was not showing any obvious bone exposure. IMPRESSION: 1. Right second toe callus and chronic ulcer with infection. 2. Right second toe cellulitis as well as lymphangitic spread into the foot. 3. Poorly controlled diabetes. 4. Low grade fever. 5. Blood culture positive with Gram-positive cocci in pairs and chains. 6. Hypertension. RECOMMENDATIONS: Recommend continue vancomycin and Rocephin for the time being. We will get MRI of the toe to make sure there is no early osteomyelitis. He wants to try to save, obviously he is only 41-year-old and detailed discussion done with him about better sugar control, weight reduction, exercise, proper dieting and we will continue to follow. Detailed discussion done with the patient and the patient's , multiple questions answered. Thank you very much, Dr. Cleaning, for giving me the opportunity to participate in this patient's care. DONYA JARAMILLO MD DR: LUIS/tamra JOB#: [id number] / [id number] RENE
[2016-08-15 03:53] VITALS: BP 132/81
[2016-08-15 06:50] LABS: CALCIUM 8.7 mg/dL (8.5-10.1); CREATININE 0.9 mg/dL (0.7-1.3); GFR 93.9; POTASSIUM 3.9 mmol/L (3.5-5.1)
[2016-08-15 07:00] VITALS: BP 118/79
[2016-08-15 07:19] LABS: BASO % 0 % (0-3); EOS % 2 % (0-3); HEMATOCRIT 42.9 % (39.0-53.0); HEMOGLOBIN 14.6 g/dL (13.0-17.5); LYMPH # 2.1 x10^3/uL (1.0-4.8); LYMPH % 28 % (24-48); MEAN CORPUSCULAR HEMOGLOBIN 28 pg (25-35); MEAN CORPUSCULAR HGB CONC 34 g/dL (31-37); MEAN CORPUSCULAR VOLUME 83 fL (79-100); MONO % 7 % (0-9); NEUT % 62 % (31-73); PLATELET COUNT 187 x10^3/uL (140-400); WHITE BLOOD COUNT 7.5 x10^3/uL (4.0-11.0)
[2016-08-15] MEDS: LISINOPRIL 5 MG TABLET. PO SCH (08:37)
[2016-08-15] MEDS: VANCOMYCIN 1.5 GM in IV NORMAL SALINE 500ML BAG 500 ML IV SCH (08:38)
[2016-08-15] MEDS: INSULIN ASPART 300 UNITS/3 ML INSULN.PEN SQ SCH ×6 (08:52→17:43)
--- NOTE | 2016-08-15 09:47 | PDOC ---
Infectious Disease Note Subjective Subjective pt feeling better ROS ROS GEN: Denies fevers, chills, sweats HEENT: Denies blurred vision, sore throat CV: Denies chest pain RESP: Denies shortness of air, cough GI: Denies n/v/d NEURO: Denies confusion, dizziness MSK: Denies weakness, joint pain/swelling Vital Sign Vital Signs Vital Signs Date Time Temp Pulse Resp B/P Pulse Ox O2 Delivery O2 Flow Rate FiO2 08/15/16 08:37 92 132/81 08/15/16 07:00 98.0 16 96 Room Air 98.0 Physical Exam PHYSICAL EXAM GENERAL: NAD, Alert HEENT: PERRL, OC/OP NECK: Supple, no JVD, no LN LUNGS: Clear HEART: S1S2, no gallop, no murmur ABD: Soft, NT, no organomegaly, no rebound EXT: No edema, no cyanosis,, rt 2 nd toe less red CLERK CASHIER: Alert, oriented x 3, no focal neurologic deficit SKIN: No rash IV: ok Labs Lab Laboratory Tests Test 08/14/16 11:48 08/14/16 16:30 08/14/16 17:17 08/14/16 21:17 Glucose (Fingerstick) 161mg/dL (70-99) 136mg/dL (70-99) 281mg/dL (70-99) Vancomycin Level Trough 33.2mcg/mL (10.0-20.0) Vancomycin Last Dose Date Vancomycin Last Dose Time 0900 Test 08/15/16 06:24 08/15/16 07:18 White Blood Count 7.5x10^3/uL (4.0-11.0) Red Blood Count 5.20x10^6/uL (4.30-5.70) Hemoglobin 14.6g/dL (13.0-17.5) Hematocrit 42.9% (39.0-53.0) Mean Corpuscular Volume 83fL (79-100) Mean Corpuscular Hemoglobin 28pg (25-35) Mean Corpuscular Hemoglobin Concent 34g/dL (31-37) Red Cell Distribution Width 13.0% (11.5-14.5) Platelet Count 187x10^3/uL (140-400) Neutrophils (%) (Auto) 62% (31-73) Lymphocytes (%) (Auto) 28% (24-48) Monocytes (%) (Auto) 7% (0-9) Eosinophils (%) (Auto) 2% (0-3) Basophils (%) (Auto) 0% (0-3) Neutrophils # (Auto) 4.6x10^3uL (1.8-7.7) Lymphocytes # (Auto) 2.1x10^3/uL (1.0-4.8) Monocytes # (Auto) 0.6x10^3/uL (0.0-1.1) Eosinophils # (Auto) 0.2x10^3/uL (0.0-0.7) Basophils # (Auto) 0.0x10^3/uL (0.0-0.2) Sodium Level 139mmol/L (136-145) Potassium Level 3.9mmol/L (3.5-5.1) Chloride Level 105mmol/L (98-107) Carbon Dioxide Level 30mmol/L (21-32) Anion Gap 4 (6-14) Blood Urea Nitrogen 17mg/dL (8-26) Creatinine 0.9mg/dL (0.7-1.3) Estimated GFR (Cockcroft-Gault) 93.9 Glucose Level 149mg/dL (70-99) Calcium Level 8.7mg/dL (8.5-10.1) Vancomycin Level Trough 9.5mcg/mL (10.0-20.0) Vancomycin Last Dose Date 08/14/16 Vancomycin Last Dose Time 1024 Glucose (Fingerstick) 158mg/dL (70-99) Objective Assessment Rt second toe callous with ulcer and infection, mri + for osteo Rt second toe cellulitis with lymphangitic spread BC + G + cocci,, contaminant DM with poor control Plan Plan of Care vanc , ceftriaxone bs control amputation vs trial of iv antibiotics to save discussed, they are going to think about it in very detail discussion done with pt and DONYA JARAMILLO MD August 15, 2016 09:47
[2016-08-15] MEDS: VANCOMYCIN PER PHARMACY MC PRN ×3 (09:59→13:49)
[2016-08-15 11:00] VITALS: BP 105/71
--- NOTE | 2016-08-15 13:07 | PDOC ---
PROGRESS NOTES Chief Complaint Chief Complaint 1. Diabetic second toe osteomyelitis with bacteremia 2. Type 2 diabetes mellitus. 3. Hypertension. plan: fu with id MRI toe done on ceftriaxone and vanco fu with bcx sen dm control wound care dvt ppx on levemir 10u qhs, aspart 5u tid, ssi will get ortho consult History of Present Illness History of Present Illness right toe pain Vitals Vitals Vital Signs Date Time Temp Pulse Resp B/P Pulse Ox O2 Delivery O2 Flow Rate FiO2 08/15/16 11:00 97.9 90 16 105/71 98 Room Air 97.9 Physical Exam General: Alert, Oriented X3, Cooperative Heart: Regular rate, Normal S1, Normal S2 Lungs: Clear Abdomen: Normal bowel sounds Extremities: Other (right 2nd toe with erythema, and ulcer) Labs LABS Laboratory Tests Test 08/14/16 16:30 08/14/16 17:17 08/14/16 21:17 08/15/16 06:24 Vancomycin Level Trough 33.2mcg/mL (10.0-20.0) 9.5mcg/mL (10.0-20.0) Vancomycin Last Dose Date 08/14/16 Vancomycin Last Dose Time 0900 1024 Glucose (Fingerstick) 136mg/dL (70-99) 281mg/dL (70-99) White Blood Count 7.5x10^3/uL (4.0-11.0) Red Blood Count 5.20x10^6/uL (4.30-5.70) Hemoglobin 14.6g/dL (13.0-17.5) Hematocrit 42.9% (39.0-53.0) Mean Corpuscular Volume 83fL (79-100) Mean Corpuscular Hemoglobin 28pg (25-35) Mean Corpuscular Hemoglobin Concent 34g/dL (31-37) Red Cell Distribution Width 13.0% (11.5-14.5) Platelet Count 187x10^3/uL (140-400) Neutrophils (%) (Auto) 62% (31-73) Lymphocytes (%) (Auto) 28% (24-48) Monocytes (%) (Auto) 7% (0-9) Eosinophils (%) (Auto) 2% (0-3) Basophils (%) (Auto) 0% (0-3) Neutrophils # (Auto) 4.6x10^3uL (1.8-7.7) Lymphocytes # (Auto) 2.1x10^3/uL (1.0-4.8) Monocytes # (Auto) 0.6x10^3/uL (0.0-1.1) Eosinophils # (Auto) 0.2x10^3/uL (0.0-0.7) Basophils # (Auto) 0.0x10^3/uL (0.0-0.2) Sodium Level 139mmol/L (136-145) Potassium Level 3.9mmol/L (3.5-5.1) Chloride Level 105mmol/L (98-107) Carbon Dioxide Level 30mmol/L (21-32) Anion Gap 4 (6-14) Blood Urea Nitrogen 17mg/dL (8-26) Creatinine 0.9mg/dL (0.7-1.3) Estimated GFR (Cockcroft-Gault) 93.9 Glucose Level 149mg/dL (70-99) Calcium Level 8.7mg/dL (8.5-10.1) Test 08/15/16 07:18 08/15/16 11:22 Glucose (Fingerstick) 158mg/dL (70-99) 135mg/dL (70-99) Review of Systems Review of Systems No fever, chills, sob or chest pain Assessment and Plan Assessmemt and Plan Problems Medical Problems: (1) Diabetic ulcer of toe Status: Acute Problems: Comment Review of Relevant I have reviewed the following items hima (where applicable) has been applied. Labs Laboratory Tests Test 08/13/16 16:20 08/13/16 16:22 08/13/16 20:40 08/14/16 04:05 White Blood Count 7.9x10^3/uL (4.0-11.0) 6.7x10^3/uL (4.0-11.0) Red Blood Count 5.92x10^6/uL (4.30-5.70) 5.17x10^6/uL (4.30-5.70) Hemoglobin 16.9g/dL (13.0-17.5) 14.7g/dL (13.0-17.5) Hematocrit 49.4% (39.0-53.0) 42.7% (39.0-53.0) Mean Corpuscular Volume 84fL (79-100) 83fL (79-100) Mean Corpuscular Hemoglobin 29pg (25-35) 28pg (25-35) Mean Corpuscular Hemoglobin Concent 34g/dL (31-37) 34g/dL (31-37) Red Cell Distribution Width 13.0% (11.5-14.5) 13.2% (11.5-14.5) Platelet Count 196x10^3/uL (140-400) 191x10^3/uL (140-400) Neutrophils (%) (Auto) 61% (31-73) 52% (31-73) Lymphocytes (%) (Auto) 27% (24-48) 36% (24-48) Monocytes (%) (Auto) 10% (0-9) 9% (0-9) Eosinophils (%) (Auto) 2% (0-3) 3% (0-3) Basophils (%) (Auto) 0% (0-3) 0% (0-3) Neutrophils # (Auto) 4.8x10^3uL (1.8-7.7) 3.4x10^3uL (1.8-7.7) Lymphocytes # (Auto) 2.2x10^3/uL (1.0-4.8) 2.4x10^3/uL (1.0-4.8) Monocytes # (Auto) 0.8x10^3/uL (0.0-1.1) 0.6x10^3/uL (0.0-1.1) Eosinophils # (Auto) 0.2x10^3/uL (0.0-0.7) 0.2x10^3/uL (0.0-0.7) Basophils # (Auto) 0.0x10^3/uL (0.0-0.2) 0.0x10^3/uL (0.0-0.2) Erythrocyte Sedimentation Rate 12 (0-15) Sodium Level 139mmol/L (136-145) 142mmol/L (136-145) Potassium Level 4.0mmol/L (3.5-5.1) 4.2mmol/L (3.5-5.1) Chloride Level 103mmol/L (98-107) 106mmol/L (98-107) Carbon Dioxide Level 28mmol/L (21-32) 27mmol/L (21-32) Anion Gap 8 (6-14) 9 (6-14) Blood Urea Nitrogen 15mg/dL (8-26) 18mg/dL (8-26) Creatinine 1.1mg/dL (0.7-1.3) 0.9mg/dL (0.7-1.3) Estimated GFR (Cockcroft-Gault) 74.5 93.9 Glucose Level 137mg/dL (70-99) 161mg/dL (70-99) Hemoglobin A1c 7.7% (4.8-5.6) Calcium Level 9.5mg/dL (8.5-10.1) 8.7mg/dL (8.5-10.1) C-Reactive Protein, Quantitative 18.3mg/L (0-3.3) Glucose (Fingerstick) 140mg/dL (70-99) 188mg/dL (70-99) Test 08/14/16 07:23 08/14/16 11:48 08/14/16 16:30 08/14/16 17:17 Glucose (Fingerstick) 169mg/dL (70-99) 161mg/dL (70-99) 136mg/dL (70-99) Vancomycin Level Trough 33.2mcg/mL (10.0-20.0) Vancomycin Last Dose Date Vancomycin Last Dose Time 0900 Test 08/14/16 21:17 08/15/16 06:24 08/15/16 07:18 08/15/16 11:22 Glucose (Fingerstick) 281mg/dL (70-99) 158mg/dL (70-99) 135mg/dL (70-99) White Blood Count 7.5x10^3/uL (4.0-11.0) Red Blood Count 5.20x10^6/uL (4.30-5.70) Hemoglobin 14.6g/dL (13.0-17.5) Hematocrit 42.9% (39.0-53.0) Mean Corpuscular Volume 83fL (79-100) Mean Corpuscular Hemoglobin 28pg (25-35) Mean Corpuscular Hemoglobin Concent 34g/dL (31-37) Red Cell Distribution Width 13.0% (11.5-14.5) Platelet Count 187x10^3/uL (140-400) Neutrophils (%) (Auto) 62% (31-73) Lymphocytes (%) (Auto) 28% (24-48) Monocytes (%) (Auto) 7% (0-9) Eosinophils (%) (Auto) 2% (0-3) Basophils (%) (Auto) 0% (0-3) Neutrophils # (Auto) 4.6x10^3uL (1.8-7.7) Lymphocytes # (Auto) 2.1x10^3/uL (1.0-4.8) Monocytes # (Auto) 0.6x10^3/uL (0.0-1.1) Eosinophils # (Auto) 0.2x10^3/uL (0.0-0.7) Basophils # (Auto) 0.0x10^3/uL (0.0-0.2) Sodium Level 139mmol/L (136-145) Potassium Level 3.9mmol/L (3.5-5.1) Chloride Level 105mmol/L (98-107) Carbon Dioxide Level 30mmol/L (21-32) Anion Gap 4 (6-14) Blood Urea Nitrogen 17mg/dL (8-26) Creatinine 0.9mg/dL (0.7-1.3) Estimated GFR (Cockcroft-Gault) 93.9 Glucose Level 149mg/dL (70-99) Calcium Level 8.7mg/dL (8.5-10.1) Vancomycin Level Trough 9.5mcg/mL (10.0-20.0) Vancomycin Last Dose Date 08/14/16 Vancomycin Last Dose Time 1024 Laboratory Tests Test 08/14/16 16:30 08/14/16 17:17 08/14/16 21:17 08/15/16 06:24 Vancomycin Level Trough 33.2mcg/mL (10.0-20.0) 9.5mcg/mL (10.0-20.0) Vancomycin Last Dose Date 08/14/16 Vancomycin Last Dose Time 0900 1024 Glucose (Fingerstick) 136mg/dL (70-99) 281mg/dL (70-99) White Blood Count 7.5x10^3/uL (4.0-11.0) Red Blood Count 5.20x10^6/uL (4.30-5.70) Hemoglobin 14.6g/dL (13.0-17.5) Hematocrit 42.9% (39.0-53.0) Mean Corpuscular Volume 83fL (79-100) Mean Corpuscular Hemoglobin 28pg (25-35) Mean Corpuscular Hemoglobin Concent 34g/dL (31-37) Red Cell Distribution Width 13.0% (11.5-14.5) Platelet Count 187x10^3/uL (140-400) Neutrophils (%) (Auto) 62% (31-73) Lymphocytes (%) (Auto) 28% (24-48) Monocytes (%) (Auto) 7% (0-9) Eosinophils (%) (Auto) 2% (0-3) Basophils (%) (Auto) 0% (0-3) Neutrophils # (Auto) 4.6x10^3uL (1.8-7.7) Lymphocytes # (Auto) 2.1x10^3/uL (1.0-4.8) Monocytes # (Auto) 0.6x10^3/uL (0.0-1.1) Eosinophils # (Auto) 0.2x10^3/uL (0.0-0.7) Basophils # (Auto) 0.0x10^3/uL (0.0-0.2) Sodium Level 139mmol/L (136-145) Potassium Level 3.9mmol/L (3.5-5.1) Chloride Level 105mmol/L (98-107) Carbon Dioxide Level 30mmol/L (21-32) Anion Gap 4 (6-14) Blood Urea Nitrogen 17mg/dL (8-26) Creatinine 0.9mg/dL (0.7-1.3) Estimated GFR (Cockcroft-Gault) 93.9 Glucose Level 149mg/dL (70-99) Calcium Level 8.7mg/dL (8.5-10.1) Test 08/15/16 07:18 08/15/16 11:22 Glucose (Fingerstick) 158mg/dL (70-99) 135mg/dL (70-99) Medications Current Medications Vancomycin HCl 1 each 1 each PRN DAILY PRN MC SEE COMMENTS Last administered on 08/15/16 09:59; Start 08/13/16 at 15:15 Ceftriaxone Sodium/Sodium Chloride (Rocephin/Iv Sodium Chloride 0.9% 50ml) 50 ml @ 100 mls/hr Q24H IV Last administered on 08/14/16 17:00; Start 08/13/16 at 16:00 Insulin Aspart (Novolog) 0-9 UNITS TIDWMEALS SQ Last administered on 08/15/16 08:52; Start 08/13/16 at 17:00 Dextrose (Dextrose 50%-Water Syringe) 12.5 gm PRN Q15MIN PRN IV SEE COMMENTS; Start 08/13/16 at 17:00 Acetaminophen (Tylenol) 325 mg PRN Q6HRS PRN PO MILD PAIN / TEMP; Start at 17:00 Acetaminophen/ Hydrocodone Bitart (Lortab 5/325) 1 tab PRN Q6HRS PRN PO MODERATE TO SEVERE PAIN; Start 08/13/16 at 17:00 Hydralazine HCl (Apresoline) 10 mg PRN Q4HRS PRN IVP ELEVATED BP, SEE COMMENTS ; Start 08/13/16 at 17:00 Ondansetron HCl (Zofran) 4 mg PRN Q8HRS PRN IV NAUSEA/VOMITING; Start 08/13/16 at 17:00 Albuterol Sulfate 2.5 mg 2.5 mg PRN Q4HRS PRN NEB SHORTNESS OF BREATH; Start at 17:00 Vancomycin HCl/ Sodium Chloride (Iv Sodium Chloride 0.9% 500ml Bag) 500 ml @ 250 mls/hr 1X ONCE IV Last administered on 08/13/16 17:11; Start 08/13/16 at 17:00; Stop 08/13/16 at 18:59; Status DC Enoxaparin Sodium (Lovenox 40mg Syringe) 40 mg Q24H SQ Last administered on 08/14 17:00; Start 08/13/16 at 17:00 Atorvastatin Calcium (Lipitor) 10 mg HS PO Last administered on 08/14/16 22:21 ; Start 08/13/16 at 21:00 Lisinopril 5 mg 5 mg DAILY PO Last administered on 08/15/16 08:37; Start at 09:00 Vancomycin HCl/ Sodium Chloride (Iv Sodium Chloride 0.9% 500ml Bag) 500 ml @ 250 mls/hr Q8H IV Last administered on 08/15/16 08:38; Start 08/14/16 at 01:00 Vancomycin HCl 1 each 1X ONCE MC Last administered on 08/14/16 16:30; Start at 16:30; Stop 08/14/16 at 16:31; Status DC Diphenhydramine HCl (Benadryl) 25 mg 1X ONCE PO Last administered on 08/14/16 04:02; Start 08/14/16 at 04:15; Stop 08/14/16 at 04:16; Status DC Gadobutrol (Gadavist) 10 mmol 1X ONCE IV Last administered on 08/14/16 14:28; Start 08/14/16 at 14:00; Stop 08/14/16 at 14:01; Status DC Vancomycin HCl 1 each 1X ONCE MC Last administered on 08/15/16 08:30; Start at 08:30; Stop 08/15/16 at 08:31; Status DC Insulin Aspart (Novolog) 5 units TIDAC SQ Last administered on 08/15/16 12:50; Start 08/15/16 at 07:30 Insulin Detemir (Levemir) 10 units QHS SQ Last administered on 08/14/16 22:26; Start 08/14/16 at 22:00 Insulin Aspart (Novolog) 5 units 1X ONCE SQ Last administered on 08/14/16 22: 27; Start 08/14/16 at 22:00; Stop 08/14/16 at 22:01; Status DC Active Scripts Active Keflex (Cephalexin) 500 Mg Capsule 500 Mg PO QID Doxycycline Hyclate 100 Mg Capsule 1 Cap PO BID Reported Atorvastatin Calcium 10 Mg Tablet 10 Mg PO HS Lisinopril 5 Mg Tablet 5 Mg PO DAILY Trulicity (Dulaglutide) 0.75 Mg/0.5 Ml Pen.injctr 0.75 Mg SQ WEEKLY Vitals/I & O Vital Sign - Last 24 Hours 08/14/16 08/14/16 08/14/162/17 19:30 20:00 23:09 03:53 Temp 97.8 97.7 98.1 97.8 97.7 98.1 Pulse 92 101 92 Resp 18 18 18 B/P 134/84 132/86 132/81 Pulse Ox 98 97 98 O2 Delivery Room Air Room Air Room Air Room Air 08/15/16 08/15/16 08/15/16 07:00 08:37 11:00 Temp 98.0 97.9 98.0 97.9 Pulse 98 92 90 Resp 16 16 B/P 118/79 132/81 105/71 Pulse Ox 96 98 O2 Delivery Room Air Room Air Intake and Output 08/14/16 08/14/16 08/15/16 15:00 23:00 07:00 Intake Total 300 ml Balance 300 ml FRANCES OLIVO MD August 15, 2016 13:07
[2016-08-15 15:00] VITALS: BP 110/71
[2016-08-15] MEDS: VANCOMYCIN 1.75 GM in IV NORMAL SALINE 500ML BAG 500 ML IV SCH (17:32)
[2016-08-15] MEDS: ENOXAPARIN 40 MG/0.4 ML SYRINGE. SQ SCH (17:32)
[2016-08-15 19:30] VITALS: BP 125/75
[2016-08-15] MEDS: ATORVASTATIN CALCIUM 10 MG TABLET. PO SCH (21:12)
[2016-08-15] MEDS: INSULIN DETEMIR 300 UNITS/3 ML INSULN.PEN. SQ SCH (21:17)
[2016-08-15 23:39] VITALS: BP 128/68
[2016-08-16] VITALS (11 sets, daily range): BP systolic 109–154; BP diastolic 64–109
[2016-08-16 04:40] LABS: BASO % 0 % (0-3); EOS % 2 % (0-3); HEMATOCRIT 41.4 % (39.0-53.0); HEMOGLOBIN 14.1 g/dL (13.0-17.5); LYMPH # 2.7 x10^3/uL (1.0-4.8); LYMPH % 36 % (24-48); MEAN CORPUSCULAR HEMOGLOBIN 28 pg (25-35); MEAN CORPUSCULAR HGB CONC 34 g/dL (31-37); MEAN CORPUSCULAR VOLUME 83 fL (79-100); MONO % 8 % (0-9); NEUT % 54 % (31-73); PLATELET COUNT 186 x10^3/uL (140-400); RED BLOOD COUNT 5.01 x10^6/uL (4.30-5.70); RED CELL DISTRIBUTION WIDTH 12.9 % (11.5-14.5); WHITE BLOOD COUNT 7.6 x10^3/uL (4.0-11.0)
[2016-08-16 05:00] LABS: CALCIUM 8.5 mg/dL (8.5-10.1); GFR 83.2; POTASSIUM 3.5 mmol/L (3.5-5.1)
[2016-08-16] MEDS: VANCOMYCIN 1.75 GM in IV NORMAL SALINE 500ML BAG 500 ML IV SCH ×2 (05:53→18:00)
[2016-08-16] MEDS: INSULIN ASPART 300 UNITS/3 ML INSULN.PEN SQ SCH ×6 (07:30→17:00)
[2016-08-16] MEDS: LISINOPRIL 5 MG TABLET. PO SCH (09:42)
--- NOTE | 2016-08-16 09:55 | PDOC ---
Infectious Disease Note Subjective Subjective pt feeling better ROS ROS GEN: Denies fevers, chills, sweats HEENT: Denies blurred vision, sore throat CV: Denies chest pain RESP: Denies shortness of air, cough GI: Denies n/v/d NEURO: Denies confusion, dizziness MSK: Denies weakness, joint pain/swelling Vital Sign Vital Signs Vital Signs Date Time Temp Pulse Resp B/P Pulse Ox O2 Delivery O2 Flow Rate FiO2 08/16/16 09:42 77 109/64 08/16/16 09:26 94 Room Air 08/16/16 07:10 97.5 15 97.5 Physical Exam PHYSICAL EXAM GENERAL: NAD, Alert HEENT: PERRL, OC/OP NECK: Supple, no JVD, no LN LUNGS: Clear HEART: S1S2, no gallop, no murmur ABD: Soft, NT, no organomegaly, no rebound EXT: No edema, no cyanosis UM RN: Alert, oriented x 3, no focal neurologic deficit SKIN: No rash IV: ok Labs Lab Laboratory Tests Test 08/15/16 11:22 08/15/16 16:50 08/15/16 21:04 08/16/16 03:40 Glucose (Fingerstick) 135mg/dL (70-99) 110mg/dL (70-99) 209mg/dL (70-99) White Blood Count 7.6x10^3/uL (4.0-11.0) Red Blood Count 5.01x10^6/uL (4.30-5.70) Hemoglobin 14.1g/dL (13.0-17.5) Hematocrit 41.4% (39.0-53.0) Mean Corpuscular Volume 83fL (79-100) Mean Corpuscular Hemoglobin 28pg (25-35) Mean Corpuscular Hemoglobin Concent 34g/dL (31-37) Red Cell Distribution Width 12.9% (11.5-14.5) Platelet Count 186x10^3/uL (140-400) Neutrophils (%) (Auto) 54% (31-73) Lymphocytes (%) (Auto) 36% (24-48) Monocytes (%) (Auto) 8% (0-9) Eosinophils (%) (Auto) 2% (0-3) Basophils (%) (Auto) 0% (0-3) Neutrophils # (Auto) 4.0x10^3uL (1.8-7.7) Lymphocytes # (Auto) 2.7x10^3/uL (1.0-4.8) Monocytes # (Auto) 0.6x10^3/uL (0.0-1.1) Eosinophils # (Auto) 0.1x10^3/uL (0.0-0.7) Basophils # (Auto) 0.0x10^3/uL (0.0-0.2) Sodium Level 140mmol/L (136-145) Potassium Level 3.5mmol/L (3.5-5.1) Chloride Level 106mmol/L (98-107) Carbon Dioxide Level 27mmol/L (21-32) Anion Gap 7 (6-14) Blood Urea Nitrogen 18mg/dL (8-26) Creatinine 1.0mg/dL (0.7-1.3) Estimated GFR (Cockcroft-Gault) 83.2 Glucose Level 131mg/dL (70-99) Calcium Level 8.5mg/dL (8.5-10.1) Test 08/16/16 07:35 Glucose (Fingerstick) 120mg/dL (70-99) Micro BLOOD CULTURE PRL Final Final report BLD CULT RESULT 1 Final Comment Coagulase negative Staphylococcus species. Recovered from anaerobic bottle only. BLD CULT RESULT 2 Final Comment Viridans streptococcus group Recovered from aerobic bottle only. GROWTH IN 1 OF 2 SETS, PROBABLE SKIN CONTAMINATION Performed at: [address] [id number] Unemployment Examiner: Kendal Grewal MD, Phone: [phone] Objective Assessment Rt second toe callous with ulcer and infection, mri + for osteo Rt second toe cellulitis with lymphangitic spread BC + G + cocci,, contaminant DM with poor control Plan Plan of Care bianca , ceftriaxone bs control amputation planned DONYA JARAMILLO MD August 16, 2016 09:55
[2016-08-16] MEDS ORDERED: IV RINGERS,LACTATED 1000ML 1,000 ML IV SCH (10:50)
[2016-08-16] MEDS ORDERED: ONDANSETRON PF 4 MG/2 ML VIAL. IV PRN (11:00)
[2016-08-16] MEDS ORDERED: MORPHINE SULFATE 2 MG/ML DISP.SYRIN. IV PRN (11:00)
[2016-08-16] MEDS ORDERED: fentaNYL PF VIAL 100 MCG/2 ML VIAL IV PRN ×2 (11:00)
[2016-08-16] MEDS ORDERED: LIDOCAINE 1% 1 ML SYRINGE. ID PRN (11:00)
[2016-08-16] MEDS ORDERED: HYDROmorphone 2 MG/ML VIAL IV PRN (11:00)
[2016-08-16] MEDS ORDERED: PROCHLORPERAZINE 10 MG/2 ML VIAL. IV PRN (11:00)
--- NOTE | 2016-08-16 11:34 | PDOC ---
PROGRESS NOTES Chief Complaint Chief Complaint 1. Diabetic second toe osteomyelitis with bacteremia (possible contamination) 2. Type 2 diabetes mellitus. 3. Hypertension. plan: fu with id MRI toe done showed osteo on ceftriaxone and vanco fu with bcx sen dm control wound care dvt ppx on levemir 10u qhs, aspart 5u tid, ssi toe amputation 08/16 History of Present Illness History of Present Illness right toe pain better sx 08/16 Vitals Vitals Vital Signs Date Time Temp Pulse Resp B/P Pulse Ox O2 Delivery O2 Flow Rate FiO2 08/16/16 11:25 97.6 86 16 116/69 98 Room Air 97.6 Physical Exam General: Alert, Oriented X3, Cooperative Heart: Regular rate, Normal S1, Normal S2 Lungs: Clear Abdomen: Normal bowel sounds Extremities: Other (right 2nd toe with erythema, and ulcer) Labs LABS Laboratory Tests Test 08/15/16 16:50 08/15/16 21:04 08/16/16 03:40 08/16/16 07:35 Glucose (Fingerstick) 110mg/dL (70-99) 209mg/dL (70-99) 120mg/dL (70-99) White Blood Count 7.6x10^3/uL (4.0-11.0) Red Blood Count 5.01x10^6/uL (4.30-5.70) Hemoglobin 14.1g/dL (13.0-17.5) Hematocrit 41.4% (39.0-53.0) Mean Corpuscular Volume 83fL (79-100) Mean Corpuscular Hemoglobin 28pg (25-35) Mean Corpuscular Hemoglobin Concent 34g/dL (31-37) Red Cell Distribution Width 12.9% (11.5-14.5) Platelet Count 186x10^3/uL (140-400) Neutrophils (%) (Auto) 54% (31-73) Lymphocytes (%) (Auto) 36% (24-48) Monocytes (%) (Auto) 8% (0-9) Eosinophils (%) (Auto) 2% (0-3) Basophils (%) (Auto) 0% (0-3) Neutrophils # (Auto) 4.0x10^3uL (1.8-7.7) Lymphocytes # (Auto) 2.7x10^3/uL (1.0-4.8) Monocytes # (Auto) 0.6x10^3/uL (0.0-1.1) Eosinophils # (Auto) 0.1x10^3/uL (0.0-0.7) Basophils # (Auto) 0.0x10^3/uL (0.0-0.2) Sodium Level 140mmol/L (136-145) Potassium Level 3.5mmol/L (3.5-5.1) Chloride Level 106mmol/L (98-107) Carbon Dioxide Level 27mmol/L (21-32) Anion Gap 7 (6-14) Blood Urea Nitrogen 18mg/dL (8-26) Creatinine 1.0mg/dL (0.7-1.3) Estimated GFR (Cockcroft-Gault) 83.2 Glucose Level 131mg/dL (70-99) Calcium Level 8.5mg/dL (8.5-10.1) Test 08/16/16 11:15 Glucose (Fingerstick) 113mg/dL (70-99) Review of Systems Review of Systems no fever, chills, sob or chest pain Assessment and Plan Assessmemt and Plan Problems Medical Problems: (1) Diabetic ulcer of toe Status: Acute Problems: Comment Review of Relevant I have reviewed the following items hima (where applicable) has been applied. Labs Laboratory Tests Test 08/14/16 11:48 08/14/16 16:30 08/14/16 17:17 08/14/16 21:17 Glucose (Fingerstick) 161mg/dL (70-99) 136mg/dL (70-99) 281mg/dL (70-99) Vancomycin Level Trough 33.2mcg/mL (10.0-20.0) Vancomycin Last Dose Date Vancomycin Last Dose Time 0900 Test 08/15/16 06:24 08/15/16 07:18 08/15/16 11:22 08/15/16 16:50 White Blood Count 7.5x10^3/uL (4.0-11.0) Red Blood Count 5.20x10^6/uL (4.30-5.70) Hemoglobin 14.6g/dL (13.0-17.5) Hematocrit 42.9% (39.0-53.0) Mean Corpuscular Volume 83fL (79-100) Mean Corpuscular Hemoglobin 28pg (25-35) Mean Corpuscular Hemoglobin Concent 34g/dL (31-37) Red Cell Distribution Width 13.0% (11.5-14.5) Platelet Count 187x10^3/uL (140-400) Neutrophils (%) (Auto) 62% (31-73) Lymphocytes (%) (Auto) 28% (24-48) Monocytes (%) (Auto) 7% (0-9) Eosinophils (%) (Auto) 2% (0-3) Basophils (%) (Auto) 0% (0-3) Neutrophils # (Auto) 4.6x10^3uL (1.8-7.7) Lymphocytes # (Auto) 2.1x10^3/uL (1.0-4.8) Monocytes # (Auto) 0.6x10^3/uL (0.0-1.1) Eosinophils # (Auto) 0.2x10^3/uL (0.0-0.7) Basophils # (Auto) 0.0x10^3/uL (0.0-0.2) Sodium Level 139mmol/L (136-145) Potassium Level 3.9mmol/L (3.5-5.1) Chloride Level 105mmol/L (98-107) Carbon Dioxide Level 30mmol/L (21-32) Anion Gap 4 (6-14) Blood Urea Nitrogen 17mg/dL (8-26) Creatinine 0.9mg/dL (0.7-1.3) Estimated GFR (Cockcroft-Gault) 93.9 Glucose Level 149mg/dL (70-99) Calcium Level 8.7mg/dL (8.5-10.1) Vancomycin Level Trough 9.5mcg/mL (10.0-20.0) Vancomycin Last Dose Date 08/14/16 Vancomycin Last Dose Time 1024 Glucose (Fingerstick) 158mg/dL (70-99) 135mg/dL (70-99) 110mg/dL (70-99) Test 08/15/16 21:04 08/16/16 03:40 08/16/16 07:35 08/16/16 11:15 Glucose (Fingerstick) 209mg/dL (70-99) 120mg/dL (70-99) 113mg/dL (70-99) White Blood Count 7.6x10^3/uL (4.0-11.0) Red Blood Count 5.01x10^6/uL (4.30-5.70) Hemoglobin 14.1g/dL (13.0-17.5) Hematocrit 41.4% (39.0-53.0) Mean Corpuscular Volume 83fL (79-100) Mean Corpuscular Hemoglobin 28pg (25-35) Mean Corpuscular Hemoglobin Concent 34g/dL (31-37) Red Cell Distribution Width 12.9% (11.5-14.5) Platelet Count 186x10^3/uL (140-400) Neutrophils (%) (Auto) 54% (31-73) Lymphocytes (%) (Auto) 36% (24-48) Monocytes (%) (Auto) 8% (0-9) Eosinophils (%) (Auto) 2% (0-3) Basophils (%) (Auto) 0% (0-3) Neutrophils # (Auto) 4.0x10^3uL (1.8-7.7) Lymphocytes # (Auto) 2.7x10^3/uL (1.0-4.8) Monocytes # (Auto) 0.6x10^3/uL (0.0-1.1) Eosinophils # (Auto) 0.1x10^3/uL (0.0-0.7) Basophils # (Auto) 0.0x10^3/uL (0.0-0.2) Sodium Level 140mmol/L (136-145) Potassium Level 3.5mmol/L (3.5-5.1) Chloride Level 106mmol/L (98-107) Carbon Dioxide Level 27mmol/L (21-32) Anion Gap 7 (6-14) Blood Urea Nitrogen 18mg/dL (8-26) Creatinine 1.0mg/dL (0.7-1.3) Estimated GFR (Cockcroft-Gault) 83.2 Glucose Level 131mg/dL (70-99) Calcium Level 8.5mg/dL (8.5-10.1) Laboratory Tests Test 08/15/16 16:50 08/15/16 21:04 08/16/16 03:40 08/16/16 07:35 Glucose (Fingerstick) 110mg/dL (70-99) 209mg/dL (70-99) 120mg/dL (70-99) White Blood Count 7.6x10^3/uL (4.0-11.0) Red Blood Count 5.01x10^6/uL (4.30-5.70) Hemoglobin 14.1g/dL (13.0-17.5) Hematocrit 41.4% (39.0-53.0) Mean Corpuscular Volume 83fL (79-100) Mean Corpuscular Hemoglobin 28pg (25-35) Mean Corpuscular Hemoglobin Concent 34g/dL (31-37) Red Cell Distribution Width 12.9% (11.5-14.5) Platelet Count 186x10^3/uL (140-400) Neutrophils (%) (Auto) 54% (31-73) Lymphocytes (%) (Auto) 36% (24-48) Monocytes (%) (Auto) 8% (0-9) Eosinophils (%) (Auto) 2% (0-3) Basophils (%) (Auto) 0% (0-3) Neutrophils # (Auto) 4.0x10^3uL (1.8-7.7) Lymphocytes # (Auto) 2.7x10^3/uL (1.0-4.8) Monocytes # (Auto) 0.6x10^3/uL (0.0-1.1) Eosinophils # (Auto) 0.1x10^3/uL (0.0-0.7) Basophils # (Auto) 0.0x10^3/uL (0.0-0.2) Sodium Level 140mmol/L (136-145) Potassium Level 3.5mmol/L (3.5-5.1) Chloride Level 106mmol/L (98-107) Carbon Dioxide Level 27mmol/L (21-32) Anion Gap 7 (6-14) Blood Urea Nitrogen 18mg/dL (8-26) Creatinine 1.0mg/dL (0.7-1.3) Estimated GFR (Cockcroft-Gault) 83.2 Glucose Level 131mg/dL (70-99) Calcium Level 8.5mg/dL (8.5-10.1) Test 08/16/16 11:15 Glucose (Fingerstick) 113mg/dL (70-99) Medications Current Medications Vancomycin HCl 1 each 1 each PRN DAILY PRN MC SEE COMMENTS Last administered on 08/15/16 13:49; Start 08/13/16 at 15:15 Ceftriaxone Sodium/Sodium Chloride (Rocephin/Iv Sodium Chloride 0.9% 50ml) 50 ml @ 100 mls/hr Q24H IV Last administered on 08/15/16 17:31; Start 08/13/16 at 16:00 Insulin Aspart (Novolog) 0-9 UNITS TIDWMEALS SQ Last administered on 08/15/16 08:52; Start 08/13/16 at 17:00 Dextrose (Dextrose 50%-Water Syringe) 12.5 gm PRN Q15MIN PRN IV SEE COMMENTS; Start 08/13/16 at 17:00 Acetaminophen (Tylenol) 325 mg PRN Q6HRS PRN PO MILD PAIN / TEMP; Start at 17:00 Acetaminophen/ Hydrocodone Bitart (Lortab 5/325) 1 tab PRN Q6HRS PRN PO MODERATE TO SEVERE PAIN Last administered on 08/16/16 03:23; Start 08/13/16 at 17:00 Hydralazine HCl (Apresoline) 10 mg PRN Q4HRS PRN IVP ELEVATED BP, SEE COMMENTS ; Start 08/13/16 at 17:00 Ondansetron HCl (Zofran) 4 mg PRN Q8HRS PRN IV NAUSEA/VOMITING; Start 08/13/16 at 17:00 Albuterol Sulfate 2.5 mg 2.5 mg PRN Q4HRS PRN NEB SHORTNESS OF BREATH; Start at 17:00 Vancomycin HCl/ Sodium Chloride (Iv Sodium Chloride 0.9% 500ml Bag) 500 ml @ 250 mls/hr 1X ONCE IV Last administered on 08/13/16 17:11; Start 08/13/16 at 17:00; Stop 08/13/16 at 18:59; Status DC Enoxaparin Sodium (Lovenox 40mg Syringe) 40 mg Q24H SQ Last administered on 08/15 17:32; Start 08/13/16 at 17:00 Atorvastatin Calcium (Lipitor) 10 mg HS PO Last administered on 08/15/16 21:12 ; Start 08/13/16 at 21:00 Lisinopril 5 mg 5 mg DAILY PO Last administered on 08/16/16 09:42; Start at 09:00 Vancomycin HCl/ Sodium Chloride (Iv Sodium Chloride 0.9% 500ml Bag) 500 ml @ 250 mls/hr Q8H IV Last administered on 08/15/16 08:38; Start 08/14/16 at 01:00; Stop 08/15/16 at 13:37; Status DC Vancomycin HCl 1 each 1X ONCE MC Last administered on 08/14/16 16:30; Start at 16:30; Stop 08/14/16 at 16:31; Status DC Diphenhydramine HCl (Benadryl) 25 mg 1X ONCE PO Last administered on 08/14/16 04:02; Start 08/14/16 at 04:15; Stop 08/14/16 at 04:16; Status DC Gadobutrol (Gadavist) 10 mmol 1X ONCE IV Last administered on 08/14/16 14:28; Start 08/14/16 at 14:00; Stop 08/14/16 at 14:01; Status DC Vancomycin HCl 1 each 1X ONCE MC Last administered on 08/15/16 08:30; Start at 08:30; Stop 08/15/16 at 08:31; Status DC Insulin Aspart (Novolog) 5 units TIDAC SQ Last administered on 08/15/16 17:43; Start 08/15/16 at 07:30 Insulin Detemir (Levemir) 10 units QHS SQ Last administered on 08/15/16 21:17; Start 08/14/16 at 22:00 Insulin Aspart 5 units 5 units 1X ONCE SQ Last administered on 08/14/16 22:27 ; Start 08/14/16 at 22:00; Stop 08/14/16 at 22:01; Status DC Vancomycin HCl/ Sodium Chloride (Iv Sodium Chloride 0.9% 500ml Bag) 500 ml @ 250 mls/hr Q12H IV Last administered on 08/16/16 05:53; Start 08/15/16 at 18:00 Vancomycin HCl 1 each 1X ONCE MC ; Start 08/16/16 at 17:30; Stop 08/16/16 at 17: 31 Ondansetron HCl (Zofran) 4 mg PRN Q6HRS PRN IV NAUSEA/VOMITING; Start 08/16/16 at 11:00; Stop 08/17/16 at 10:59 Fentanyl Citrate (Fentanyl 2ml Vial) 25 mcg PRN Q5MIN PRN IV MILD PAIN; Start 08/16/16 at 11:00; Stop 08/17/16 at 10:59 Fentanyl Citrate (Fentanyl 2ml Vial) 50 mcg PRN Q5MIN PRN IV MODERATE PAIN; Start 08/16/16 at 11:00; Stop 08/17/16 at 10:59 Morphine Sulfate 1 mg PRN Q10MIN PRN IV SEVERE PAIN; Start 08/16/16 at 11:00; Stop 08/17/16 at 10:59 Lidocaine HCl 2 ml PRN 1X PRN ID PRIOR TO IV START; Start 08/16/16 at 11:00; Stop 08/17/16 at 10:59 Hydromorphone HCl (Dilaudid) 0.5 mg PRN Q10MIN PRN IV SEV PAIN, Second choice; Start 08/16/16 at 11:00; Stop 08/17/16 at 10:59 Prochlorperazine Edisylate (Compazine) 5 mg PACU PRN PRN IV NAUSEA, MRX1; Start 08/16/16 at 11:00; Stop 08/17/16 at 10:59 Active Scripts Active Keflex (Cephalexin) 500 Mg Capsule 500 Mg PO QID Doxycycline Hyclate 100 Mg Capsule 1 Cap PO BID Reported Atorvastatin Calcium 10 Mg Tablet 10 Mg PO HS Lisinopril 5 Mg Tablet 5 Mg PO DAILY Trulicity (Dulaglutide) 0.75 Mg/0.5 Ml Pen.injctr 0.75 Mg SQ WEEKLY Vitals/I & O Vital Sign - Last 24 Hours 08/15/16 08/15/16 08/15/16 08/15/16 15:00 19:10 19:30 23:39 Temp 95.9 98.1 98.2 95.9 98.1 98.2 Pulse 81 90 92 Resp 16 18 18 B/P 110/71 125/75 128/68 Pulse Ox 98 94 97 O2 Delivery Room Air Room Air Room Air Room Air 08/16/16 08/16/16 08/16/16 08/16/16 03:23 03:39 04:38 07:10 Temp 97.7 97.5 97.7 97.5 Pulse 91 77 Resp 18 15 B/P 114/65 109/64 Pulse Ox 93 96 O2 Delivery Room Air Room Air Room Air Room Air 08/16/16 08/16/16 08/16/16 08/16/16 07:40 09:26 09:42 11:25 Temp 97.6 97.6 Pulse 77 86 Resp 16 B/P 109/64 116/69 Pulse Ox 94 98 O2 Delivery Room Air Room Air Room Air Intake and Output 08/15/16 08/15/16 08/16/16 15:00 23:00 07:00 Intake Total 540 ml Balance 540 ml FRANCES OLIVO MD August 16, 2016 11:34
[2016-08-16] MEDS: ENOXAPARIN 40 MG/0.4 ML SYRINGE. SQ SCH (14:28)
[2016-08-16] MEDS ORDERED: DEXAMETHASONE SOD PHOS 20 MG/5 ML VIAL. ONE (15:18)
[2016-08-16] MEDS ORDERED: ONDANSETRON PF 4 MG/2 ML VIAL. ONE (15:18)
[2016-08-16] MEDS ORDERED: PROPOFOL 20 ML IV ONE (15:18)
[2016-08-16] MEDS ORDERED: LIDOCAINE 2% 100 MG/5 ML SYRINGE. ONE (15:18)
[2016-08-16] MEDS ORDERED: fentaNYL PF VIAL 100 MCG/2 ML VIAL ONE (15:19)
[2016-08-16] MEDS: VANCOMYCIN PER PHARMACY MC PRN (18:47)
[2016-08-16] MEDS ORDERED: SEVOFLURANE 31 TO 60 MINUTES. IH ONE (19:26)
--- NOTE | 2016-08-16 19:56 | PDOC ---
BRIEF OPERATIVE NOTE Date: August 16, 2016 Pre-Op Diagnosis osteomyelitis left 2nd toe Post-Op Diagnosis same Procedure Performed left second toe partial amputation Surgeon Sylvester Anesthesia Type: General Blood Loss 10cc Specimens Obtained distal phalange and skin, nailbed Findings above Complications none DHAVAL ARGUETA MD August 16, 2016 19:56
--- NOTE | 2016-08-16 21:02 | OP ---
DATE OF SURGERY: PREOPERATIVE DIAGNOSIS: Osteomyelitis, right second toe. POSTOPERATIVE DIAGNOSIS: Osteomyelitis, right second toe. PROCEDURE: Right second toe partial amputation. SURGEON: Dmitry Phan M.D. ANESTHESIA: General. ESTIMATED BLOOD LOSS: 10 mL. COMPLICATIONS: None. OPERATIVE INDICATIONS: The patient was having severe redness, drainage, and bacteremia, and MRI was showing osteomyelitis of his left second toe in the distal phalanx. I had gone over with him the possibility of nonoperative treatment, the usual long course of antibiotics and difficulty with healing this up, especially the soft tissue compromise that he has had and poor circulation due to his diabetes. We talked about the risks, benefits, and postoperative course of surgery, possibility of nonhealing, persistent infection, wound breakdown, and medical or other anesthetic complications. All of his questions were answered, consent was obtained, and he agrees to proceed with operative evaluation and treatment. OPERATIVE TECHNIQUE: The patient was identified, procedure verified. After adequate amounts of general anesthesia were administered, the left lower extremity was prepped and draped in the standard sterile fashion. Tourniquet was applied, but not inflated. After timeout was performed, the patient and procedure identified and verified, an incision was made with a fishmouth - the anterior flap just proximal to the nail bed, and the fishmouthed space ____with longer area plantarly____ because there was better tissue there. The distal phalanx was completely excised and removed. The end of the middle phalanx was denuded of cartilage and the condyles removed as well to allow good tissue coverage and thorough irrigation carried out with normal saline solution. Bleeding points were controlled by electrocautery and tissue edges were approximated with 3-0 nylon suture in a simple fashion. Sterile dressings were applied. The patient was returned to recovery room in stable condition, having tolerated the procedure well. DMITRY PHAN MD DR: ROCÍO/tamra JOB#: [id number] / [id number]
[2016-08-16] MEDS: ATORVASTATIN CALCIUM 10 MG TABLET. PO SCH (22:53)
[2016-08-16] MEDS: INSULIN DETEMIR 300 UNITS/3 ML INSULN.PEN. SQ SCH (22:58)
[2016-08-17 02:48] VITALS: BP 115/73
[2016-08-17] MEDS: VANCOMYCIN 1.75 GM in IV NORMAL SALINE 500ML BAG 500 ML IV SCH (06:00)
[2016-08-17 07:15] VITALS: BP 121/80
[2016-08-17 07:38] LABS: CALCIUM 8.5 mg/dL (8.5-10.1); CREATININE 1.1 mg/dL (0.7-1.3); GFR 74.5; POTASSIUM 4.2 mmol/L (3.5-5.1)
[2016-08-17 08:00] LABS: BASO % 0 % (0-3); EOS % 0 % (0-3); HEMATOCRIT 42.8 % (39.0-53.0); HEMOGLOBIN 14.7 g/dL (13.0-17.5); LYMPH # 0.8 x10^3/uL (1.0-4.8); LYMPH % 9 % (24-48); MEAN CORPUSCULAR HEMOGLOBIN 28 pg (25-35); MEAN CORPUSCULAR HGB CONC 34 g/dL (31-37); MEAN CORPUSCULAR VOLUME 82 fL (79-100); MONO % 1 % (0-9); NEUT % 90 % (31-73); PLATELET COUNT 201 x10^3/uL (140-400); RED BLOOD COUNT 5.22 x10^6/uL (4.30-5.70); RED CELL DISTRIBUTION WIDTH 12.8 % (11.5-14.5); WHITE BLOOD COUNT 8.6 x10^3/uL (4.0-11.0)
[2016-08-17] MEDS: LISINOPRIL 5 MG TABLET. PO SCH (08:44)
--- NOTE | 2016-08-17 09:03 | PDOC ---
Infectious Disease Note Subjective Subjective pt feeling better ROS ROS GEN: Denies fevers, chills, sweats HEENT: Denies blurred vision, sore throat CV: Denies chest pain RESP: Denies shortness of air, cough GI: Denies n/v/d NEURO: Denies confusion, dizziness MSK: Denies weakness, joint pain/swelling Vital Sign Vital Signs Vital Signs Date Time Temp Pulse Resp B/P (MAP) Pulse Ox O2 Delivery O2 Flow Rate FiO2 08/17/16 08:44 85 121/80 08/17/16 07:15 97.8 18 95 Room Air 97.8 08/16/16 19:57 10 Physical Exam PHYSICAL EXAM GENERAL: NAD, Alert HEENT: PERRL, OC/OP NECK: Supple, no JVD, no LN LUNGS: Clear HEART: S1S2, no gallop, no murmur ABD: Soft, NT, no organomegaly, no rebound EXT: No edema, no cyanosis NURSE OBGYN: Alert, oriented x 3, no focal neurologic deficit SKIN: No rash IV: ok Labs Lab Laboratory Tests Test 08/16/16 11:15 08/16/16 17:25 08/16/16 19:55 08/17/16 03:40 Glucose (Fingerstick) 113 mg/dL (70-99) 96 mg/dL (70-99) Vancomycin Level Trough 17.7 mcg/mL (10.0-20.0) Vancomycin Last Dose Date 08/16/16 Vancomycin Last Dose Time 0600 White Blood Count 8.6 x10^3/uL (4.0-11.0) Red Blood Count 5.22 x10^6/uL (4.30-5.70) Hemoglobin 14.7 g/dL (13.0-17.5) Hematocrit 42.8 % (39.0-53.0) Mean Corpuscular Volume 82 fL (79-100) Mean Corpuscular Hemoglobin 28 pg (25-35) Mean Corpuscular Hemoglobin Concent 34 g/dL (31-37) Red Cell Distribution Width 12.8 % (11.5-14.5) Platelet Count 201 x10^3/uL (140-400) Neutrophils (%) (Auto) 90 % (31-73) Lymphocytes (%) (Auto) 9 % (24-48) Monocytes (%) (Auto) 1 % (0-9) Eosinophils (%) (Auto) 0 % (0-3) Basophils (%) (Auto) 0 % (0-3) Neutrophils # (Auto) 7.8 x10^3uL (1.8-7.7) Lymphocytes # (Auto) 0.8 x10^3/uL (1.0-4.8) Monocytes # (Auto) 0.1 x10^3/uL (0.0-1.1) Eosinophils # (Auto) 0.0 x10^3/uL (0.0-0.7) Basophils # (Auto) 0.0 x10^3/uL (0.0-0.2) Test 08/17/16 03:45 08/17/16 07:53 Sodium Level 137 mmol/L (136-145) Potassium Level 4.2 mmol/L (3.5-5.1) Chloride Level 102 mmol/L (98-107) Carbon Dioxide Level 29 mmol/L (21-32) Anion Gap 6 (6-14) Blood Urea Nitrogen 15 mg/dL (8-26) Creatinine 1.1 mg/dL (0.7-1.3) Estimated GFR (Cockcroft-Gault) 74.5 Glucose Level 309 mg/dL (70-99) Calcium Level 8.5 mg/dL (8.5-10.1) Glucose (Fingerstick) 263 mg/dL (70-99) Micro BLOOD CULTURE PRL Final Final report BLD CULT RESULT 1 Final Comment Coagulase negative Staphylococcus species. Recovered from anaerobic bottle only. BLD CULT RESULT 2 Final Comment Viridans streptococcus group Recovered from aerobic bottle only. GROWTH IN 1 OF 2 SETS, PROBABLE SKIN CONTAMINATION Performed at: [address] [id number] Tour Consultant: Kendal Grewal MD, Phone: [phone] Objective Assessment Rt second toe callous with ulcer and infection, mri + for osteo,, s/p partial amputation Rt second toe cellulitis with lymphangitic spread BC + G + cocci,, contaminant DM with poor control Plan Plan of Care change to smita guillory control DONYA JARAMILLO MD August 17, 2016 09:03
[2016-08-17 09:40] LABS: PLT ESTIMATE ADEQUATE (ADEQUATE)
[2016-08-17] MEDS: INSULIN ASPART 300 UNITS/3 ML INSULN.PEN SQ SCH ×6 (09:43→18:19)
[2016-08-17 11:15] VITALS: BP 106/64
--- NOTE | 2016-08-17 11:19 | PDOC ---
PROGRESS NOTES Chief Complaint Chief Complaint 1. 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 Type 2 diabetes mellitus. 3. Hypertension. 4. bacteremia (possible contamination) plan: fu with id MRI toe done showed osteo dced ceftriaxone and vanco as per id, on vantin dm control wound care dvt ppx increase levemir 15u qhs, aspart 5u tid, ssi toe amputation 08/16 hope dc tmr if ok with ortho History of Present Illness History of Present Illness right toe pain better sx 08/16 hyperglycemia Vitals Vitals Vital Signs Date Time Temp Pulse Resp B/P (MAP) Pulse Ox O2 Delivery O2 Flow Rate FiO2 08/17/16 08:44 85 121/80 08/17/16 07:15 97.8 18 95 Room Air 97.8 08/16/16 19:57 10 Physical Exam General: Alert, Oriented X3, Cooperative Heart: Regular rate, Normal S1, Normal S2 Lungs: Clear Abdomen: Normal bowel sounds Extremities: Other (right 2nd toe with erythema, post op , clean dressing) Labs LABS Laboratory Tests Test 08/16/16 17:25 08/16/16 19:55 08/17/16 03:40 08/17/16 03:45 Vancomycin Level Trough 17.7 mcg/mL (10.0-20.0) Vancomycin Last Dose Date 08/16/16 Vancomycin Last Dose Time 0600 Glucose (Fingerstick) 96 mg/dL (70-99) White Blood Count 8.6 x10^3/uL (4.0-11.0) Red Blood Count 5.22 x10^6/uL (4.30-5.70) Hemoglobin 14.7 g/dL (13.0-17.5) Hematocrit 42.8 % (39.0-53.0) Mean Corpuscular Volume 82 fL (79-100) Mean Corpuscular Hemoglobin 28 pg (25-35) Mean Corpuscular Hemoglobin Concent 34 g/dL (31-37) Red Cell Distribution Width 12.8 % (11.5-14.5) Platelet Count 201 x10^3/uL (140-400) Neutrophils (%) (Auto) 90 % (31-73) Lymphocytes (%) (Auto) 9 % (24-48) Monocytes (%) (Auto) 1 % (0-9) Eosinophils (%) (Auto) 0 % (0-3) Basophils (%) (Auto) 0 % (0-3) Neutrophils # (Auto) 7.8 x10^3uL (1.8-7.7) Lymphocytes # (Auto) 0.8 x10^3/uL (1.0-4.8) Monocytes # (Auto) 0.1 x10^3/uL (0.0-1.1) Eosinophils # (Auto) 0.0 x10^3/uL (0.0-0.7) Basophils # (Auto) 0.0 x10^3/uL (0.0-0.2) Segmented Neutrophils % 88 % (35-66) Band Neutrophils % 6 % (0-9) Lymphocytes % 6 % (24-48) Platelet Estimate Adequate (ADEQUATE) Sodium Level 137 mmol/L (136-145) Potassium Level 4.2 mmol/L (3.5-5.1) Chloride Level 102 mmol/L (98-107) Carbon Dioxide Level 29 mmol/L (21-32) Anion Gap 6 (6-14) Blood Urea Nitrogen 15 mg/dL (8-26) Creatinine 1.1 mg/dL (0.7-1.3) Estimated GFR (Cockcroft-Gault) 74.5 Glucose Level 309 mg/dL (70-99) Calcium Level 8.5 mg/dL (8.5-10.1) Test 08/17/16 07:53 08/17/16 11:10 Glucose (Fingerstick) 263 mg/dL (70-99) 240 mg/dL (70-99) Review of Systems Review of Systems no fever, chills, sob or chest pain Assessment and Plan Assessmemt and Plan Problems Medical Problems: (1) Diabetic ulcer of toe Status: Acute Problems: Comment Review of Relevant I have reviewed the following items hima (where applicable) has been applied. Labs Laboratory Tests Test 08/15/16 11:22 08/15/16 16:50 08/15/16 21:04 08/16/16 03:40 Glucose (Fingerstick) 135 mg/dL (70-99) 110 mg/dL (70-99) 209 mg/dL (70-99) White Blood Count 7.6 x10^3/uL (4.0-11.0) Red Blood Count 5.01 x10^6/uL (4.30-5.70) Hemoglobin 14.1 g/dL (13.0-17.5) Hematocrit 41.4 % (39.0-53.0) Mean Corpuscular Volume 83 fL (79-100) Mean Corpuscular Hemoglobin 28 pg (25-35) Mean Corpuscular Hemoglobin Concent 34 g/dL (31-37) Red Cell Distribution Width 12.9 % (11.5-14.5) Platelet Count 186 x10^3/uL (140-400) Neutrophils (%) (Auto) 54 % (31-73) Lymphocytes (%) (Auto) 36 % (24-48) Monocytes (%) (Auto) 8 % (0-9) Eosinophils (%) (Auto) 2 % (0-3) Basophils (%) (Auto) 0 % (0-3) Neutrophils # (Auto) 4.0 x10^3uL (1.8-7.7) Lymphocytes # (Auto) 2.7 x10^3/uL (1.0-4.8) Monocytes # (Auto) 0.6 x10^3/uL (0.0-1.1) Eosinophils # (Auto) 0.1 x10^3/uL (0.0-0.7) Basophils # (Auto) 0.0 x10^3/uL (0.0-0.2) Sodium Level 140 mmol/L (136-145) Potassium Level 3.5 mmol/L (3.5-5.1) Chloride Level 106 mmol/L (98-107) Carbon Dioxide Level 27 mmol/L (21-32) Anion Gap 7 (6-14) Blood Urea Nitrogen 18 mg/dL (8-26) Creatinine 1.0 mg/dL (0.7-1.3) Estimated GFR (Cockcroft-Gault) 83.2 Glucose Level 131 mg/dL (70-99) Calcium Level 8.5 mg/dL (8.5-10.1) Test 08/16/16 07:35 08/16/16 11:15 08/16/16 17:25 08/16/16 19:55 Glucose (Fingerstick) 120 mg/dL (70-99) 113 mg/dL (70-99) 96 mg/dL (70-99) Vancomycin Level Trough 17.7 mcg/mL (10.0-20.0) Vancomycin Last Dose Date 08/16/16 Vancomycin Last Dose Time 0600 Test 08/17/16 03:40 08/17/16 03:45 08/17/16 07:53 08/17/16 11:10 White Blood Count 8.6 x10^3/uL (4.0-11.0) Red Blood Count 5.22 x10^6/uL (4.30-5.70) Hemoglobin 14.7 g/dL (13.0-17.5) Hematocrit 42.8 % (39.0-53.0) Mean Corpuscular Volume 82 fL (79-100) Mean Corpuscular Hemoglobin 28 pg (25-35) Mean Corpuscular Hemoglobin Concent 34 g/dL (31-37) Red Cell Distribution Width 12.8 % (11.5-14.5) Platelet Count 201 x10^3/uL (140-400) Neutrophils (%) (Auto) 90 % (31-73) Lymphocytes (%) (Auto) 9 % (24-48) Monocytes (%) (Auto) 1 % (0-9) Eosinophils (%) (Auto) 0 % (0-3) Basophils (%) (Auto) 0 % (0-3) Neutrophils # (Auto) 7.8 x10^3uL (1.8-7.7) Lymphocytes # (Auto) 0.8 x10^3/uL (1.0-4.8) Monocytes # (Auto) 0.1 x10^3/uL (0.0-1.1) Eosinophils # (Auto) 0.0 x10^3/uL (0.0-0.7) Basophils # (Auto) 0.0 x10^3/uL (0.0-0.2) Segmented Neutrophils % 88 % (35-66) Band Neutrophils % 6 % (0-9) Lymphocytes % 6 % (24-48) Platelet Estimate Adequate (ADEQUATE) Sodium Level 137 mmol/L (136-145) Potassium Level 4.2 mmol/L (3.5-5.1) Chloride Level 102 mmol/L (98-107) Carbon Dioxide Level 29 mmol/L (21-32) Anion Gap 6 (6-14) Blood Urea Nitrogen 15 mg/dL (8-26) Creatinine 1.1 mg/dL (0.7-1.3) Estimated GFR (Cockcroft-Gault) 74.5 Glucose Level 309 mg/dL (70-99) Calcium Level 8.5 mg/dL (8.5-10.1) Glucose (Fingerstick) 263 mg/dL (70-99) 240 mg/dL (70-99) Laboratory Tests Test 08/16/16 17:25 08/16/16 19:55 08/17/16 03:40 08/17/16 03:45 Vancomycin Level Trough 17.7 mcg/mL (10.0-20.0) Vancomycin Last Dose Date 08/16/16 Vancomycin Last Dose Time 0600 Glucose (Fingerstick) 96 mg/dL (70-99) White Blood Count 8.6 x10^3/uL (4.0-11.0) Red Blood Count 5.22 x10^6/uL (4.30-5.70) Hemoglobin 14.7 g/dL (13.0-17.5) Hematocrit 42.8 % (39.0-53.0) Mean Corpuscular Volume 82 fL (79-100) Mean Corpuscular Hemoglobin 28 pg (25-35) Mean Corpuscular Hemoglobin Concent 34 g/dL (31-37) Red Cell Distribution Width 12.8 % (11.5-14.5) Platelet Count 201 x10^3/uL (140-400) Neutrophils (%) (Auto) 90 % (31-73) Lymphocytes (%) (Auto) 9 % (24-48) Monocytes (%) (Auto) 1 % (0-9) Eosinophils (%) (Auto) 0 % (0-3) Basophils (%) (Auto) 0 % (0-3) Neutrophils # (Auto) 7.8 x10^3uL (1.8-7.7) Lymphocytes # (Auto) 0.8 x10^3/uL (1.0-4.8) Monocytes # (Auto) 0.1 x10^3/uL (0.0-1.1) Eosinophils # (Auto) 0.0 x10^3/uL (0.0-0.7) Basophils # (Auto) 0.0 x10^3/uL (0.0-0.2) Segmented Neutrophils % 88 % (35-66) Band Neutrophils % 6 % (0-9) Lymphocytes % 6 % (24-48) Platelet Estimate Adequate (ADEQUATE) Sodium Level 137 mmol/L (136-145) Potassium Level 4.2 mmol/L (3.5-5.1) Chloride Level 102 mmol/L (98-107) Carbon Dioxide Level 29 mmol/L (21-32) Anion Gap 6 (6-14) Blood Urea Nitrogen 15 mg/dL (8-26) Creatinine 1.1 mg/dL (0.7-1.3) Estimated GFR (Cockcroft-Gault) 74.5 Glucose Level 309 mg/dL (70-99) Calcium Level 8.5 mg/dL (8.5-10.1) Test 08/17/16 07:53 08/17/16 11:10 Glucose (Fingerstick) 263 mg/dL (70-99) 240 mg/dL (70-99) Microbiology 08/16/16 Blood Culture - Preliminary, Resulted NO GROWTH AFTER 1 DAY Medications Current Medications Vancomycin HCl (Vanco Per Pharmacy) 1 each PRN DAILY PRN MC SEE COMMENTS Last administered on 08/16/16 18:47; Start 08/13/16 at 15:15; Stop 08/17/16 at 09:04; Status DC Ceftriaxone Sodium 1 gm/ Sodium Chloride 50 ml @ 100 mls/hr Q24H IV Last administered on 08/16/16 14:40; Start 08/13/16 at 16:00; Stop 08/17/16 at 09:04; Status DC Insulin Aspart (Novolog) 0-9 UNITS TIDWMEALS SQ Last administered on 08/17/16 09:44; Start 08/13/16 at 17:00 Dextrose (Dextrose 50%-Water Syringe) 12.5 gm PRN Q15MIN PRN IV SEE COMMENTS; Start 08/13/16 at 17:00 Acetaminophen (Tylenol) 325 mg PRN Q6HRS PRN PO MILD PAIN / TEMP; Start at 17:00 Acetaminophen/ Hydrocodone Bitart (Lortab 5/325) 1 tab PRN Q6HRS PRN PO MODERATE TO SEVERE PAIN Last administered on 08/16/16 03:23; Start 08/13/16 at 17:00 Hydralazine HCl (Apresoline) 10 mg PRN Q4HRS PRN IVP ELEVATED BP, SEE COMMENTS ; Start 08/13/16 at 17:00 Ondansetron HCl (Zofran) 4 mg PRN Q8HRS PRN IV NAUSEA/VOMITING; Start 08/13/16 at 17:00 Albuterol Sulfate (Ventolin Neb Soln) 2.5 mg PRN Q4HRS PRN NEB SHORTNESS OF BREATH; Start 08/13/16 at 17:00 Vancomycin HCl 2 gm/Sodium Chloride 500 ml @ 250 mls/hr 1X ONCE IV Last administered on 08/13/16 17:11; Start 08/13/16 at 17:00; Stop 08/13/16 at 18:59 ; Status DC Enoxaparin Sodium (Lovenox 40mg Syringe) 40 mg Q24H SQ Last administered on 08/15 17:32; Start 08/13/16 at 17:00 Atorvastatin Calcium (Lipitor) 10 mg HS PO Last administered on 08/16/16 22:53 ; Start 08/13/16 at 21:00 Lisinopril (Prinivil) 5 mg DAILY PO Last administered on 08/17/16 08:44; Start 08/14/16 at 09:00 Vancomycin HCl 1.5 gm/Sodium Chloride 500 ml @ 250 mls/hr Q8H IV Last administered on 08/15/16 08:38; Start 08/14/16 at 01:00; Stop 08/15/16 at 13:37; Status DC Vancomycin HCl 1 each 1X ONCE MC Last administered on 08/14/16 16:30; Start at 16:30; Stop 08/14/16 at 16:31; Status DC Diphenhydramine HCl (Benadryl) 25 mg 1X ONCE PO Last administered on 08/14/16 04:02; Start 08/14/16 at 04:15; Stop 08/14/16 at 04:16; Status DC Gadobutrol (Gadavist) 10 mmol 1X ONCE IV Last administered on 08/14/16 14:28; Start 08/14/16 at 14:00; Stop 08/14/16 at 14:01; Status DC Vancomycin HCl 1 each 1X ONCE MC Last administered on 08/15/16 08:30; Start at 08:30; Stop 08/15/16 at 08:31; Status DC Insulin Aspart (Novolog) 5 units TIDAC SQ Last administered on 08/17/16 09:43; Start 08/15/16 at 07:30 Insulin Detemir (Levemir) 10 units QHS SQ Last administered on 08/16/16 22:58; Start 08/14/16 at 22:00 Insulin Aspart (Novolog) 5 units 1X ONCE SQ Last administered on 08/14/16 22: 27; Start 08/14/16 at 22:00; Stop 08/14/16 at 22:01; Status DC Vancomycin HCl 1.75 gm/Sodium Chloride 500 ml @ 250 mls/hr Q12H IV Last administered on 08/17/16 06:00; Start 08/15/16 at 18:00; Stop 08/17/16 at 09:04; Status DC Vancomycin HCl 1 each 1X ONCE MC ; Start 08/16/16 at 17:30; Stop 08/16/16 at 17: 31; Status DC Ondansetron HCl (Zofran) 4 mg PRN Q6HRS PRN IV NAUSEA/VOMITING; Start 08/16/16 at 11:00; Stop 08/17/16 at 10:59; Status DC Fentanyl Citrate (Fentanyl 2ml Vial) 25 mcg PRN Q5MIN PRN IV MILD PAIN; Start 08/16/16 at 11:00; Stop 08/17/16 at 10:59; Status DC Fentanyl Citrate (Fentanyl 2ml Vial) 50 mcg PRN Q5MIN PRN IV MODERATE PAIN; Start 08/16/16 at 11:00; Stop 08/17/16 at 10:59; Status DC Morphine Sulfate 1 mg PRN Q10MIN PRN IV SEVERE PAIN; Start 08/16/16 at 11:00; Stop 08/17/16 at 10:59; Status DC Lidocaine HCl 2 ml PRN 1X PRN ID PRIOR TO IV START; Start 08/16/16 at 11:00; Stop 08/17/16 at 10:59; Status DC Hydromorphone HCl (Dilaudid) 0.5 mg PRN Q10MIN PRN IV SEV PAIN, Second choice; Start 08/16/16 at 11:00; Stop 08/17/16 at 10:59; Status DC Prochlorperazine Edisylate (Compazine) 5 mg PACU PRN PRN IV NAUSEA, MRX1; Start 08/16/16 at 11:00; Stop 08/17/16 at 10:59; Status DC Propofol 20 ml @ As Directed STK-MED ONCE IV ; Start 08/16/16 at 15:18; Stop 08/16 at 15:19; Status DC Lidocaine HCl (Lidocaine HCl 2% Abboject) 100 mg STK-MED ONCE .ROUTE ; Start 08/16/16 at 15:18; Stop 08/16/16 at 15:19; Status DC Dexamethasone Sodium Phosphate (Decadron) 20 mg STK-MED ONCE .ROUTE ; Start 08/16 at 15:18; Stop 08/16/16 at 15:19; Status DC Ondansetron HCl (Zofran) 4 mg STK-MED ONCE .ROUTE ; Start 08/16/16 at 15:18; Stop 08/16/16 at 15:19; Status DC Fentanyl Citrate (Fentanyl 2ml Vial) 100 mcg STK-MED ONCE .ROUTE ; Start at 15:19; Stop 08/16/16 at 15:20; Status DC Sevoflurane (Ultane) 30 ml STK-MED ONCE IH ; Start 08/16/16 at 19:26; Stop at 19:27; Status DC Active Scripts Active Keflex (Cephalexin) 500 Mg Capsule 500 Mg PO QID Doxycycline Hyclate 100 Mg Capsule 1 Cap PO BID Reported Atorvastatin Calcium 10 Mg Tablet 10 Mg PO HS Lisinopril 5 Mg Tablet 5 Mg PO DAILY Trulicity (Dulaglutide) 0.75 Mg/0.5 Ml Pen.injctr 0.75 Mg SQ WEEKLY Vitals/I & O Vital Sign - Last 24 Hours 08/16/16 08/16/16 08/16/16 08/16/16 11:25 14:52 19:42 19:42 Temp 97.6 97.9 98.0 97.6 97.9 98.0 Pulse 86 79 92 Resp 16 15 16 B/P (MAP) 116/69 (85) 133/91 (105) 88/45 Pulse Ox 98 97 100 O2 Delivery Room Air Room Air Mask Simple Mask O2 Flow Rate 10 10 08/16/16 08/16/16 08/16/16 08/16/16 19:57 20:12 20:14 20:27 Temp 97.5 97.5 Pulse 72 92 88 Resp 18 18 18 B/P (MAP) 120/60 126/69 119/62 Pulse Ox 100 100 100 O2 Delivery Simple Mask Room Air Room Air Room Air O2 Flow Rate 10 08/16/16 08/16/16 08/16/16 08/16/16 20:45 21:00 21:15 21:30 Temp 97.7 97.7 Pulse 91 93 98 101 Resp 18 B/P (MAP) 154/98 (116) 136/87 (103) 153/72 (99) 142/109 (120) Pulse Ox 95 O2 Delivery Room Air 08/16/16 08/16/16 08/16/16 08/17/16 22:00 22:30 23:30 02:48 Temp 97.8 97.8 Pulse 99 104 107 101 Resp 18 B/P (MAP) 131/85 (100) 141/85 (103) 127/85 (99) 115/73 (87) Pulse Ox 93 O2 Delivery Room Air 08/17/16 08/17/16 07:15 08:44 Temp 97.8 97.8 Pulse 85 85 Resp 18 B/P (MAP) 121/80 (94) 121/80 Pulse Ox 95 O2 Delivery Room Air Intake and Output 08/16/16 08/16/16 08/17/16 15:00 23:00 07:00 Intake Total 300 ml 300 ml Output Total 10 ml Balance 290 ml 300 ml FRANCES OLIVO MD August 17, 2016 11:19
[2016-08-17 15:15] VITALS: BP 105/66
[2016-08-17] MEDS: ENOXAPARIN 40 MG/0.4 ML SYRINGE. SQ SCH (18:20)
[2016-08-17 19:00] VITALS: BP 121/79
[2016-08-17] MEDS ORDERED: INSULIN DETEMIR 300 UNITS/3 ML INSULN.PEN. SQ SCH (21:00)
[2016-08-17] MEDS: CEFPODOXIME PROXETIL 100 MG TABLET. PO SCH (21:30)
[2016-08-17] MEDS: ATORVASTATIN CALCIUM 10 MG TABLET. PO SCH (21:31)
[2016-08-17 23:00] VITALS: BP 129/77
[2016-08-18 03:00] VITALS: BP 110/70
[2016-08-18 04:10] LABS: BASO % 0 % (0-3); EOS % 1 % (0-3); HEMATOCRIT 39.3 % (39.0-53.0); HEMOGLOBIN 13.5 g/dL (13.0-17.5); LYMPH # 3.5 x10^3/uL (1.0-4.8); LYMPH % 30 % (24-48); MEAN CORPUSCULAR HEMOGLOBIN 28 pg (25-35); MEAN CORPUSCULAR HGB CONC 34 g/dL (31-37); MEAN CORPUSCULAR VOLUME 83 fL (79-100); MONO % 6 % (0-9); NEUT % 63 % (31-73); PLATELET COUNT 193 x10^3/uL (140-400); RED BLOOD COUNT 4.77 x10^6/uL (4.30-5.70); WHITE BLOOD COUNT 11.6 x10^3/uL (4.0-11.0)
[2016-08-18 04:19] LABS: CALCIUM 8.4 mg/dL (8.5-10.1); CREATININE 0.9 mg/dL (0.7-1.3); GFR 93.9; POTASSIUM 3.8 mmol/L (3.5-5.1)
[2016-08-18 07:00] VITALS: BP 105/70
[2016-08-18] MEDS: INSULIN ASPART 300 UNITS/3 ML INSULN.PEN SQ SCH ×2 (08:00→08:39)
[2016-08-18] MEDS: CEFPODOXIME PROXETIL 100 MG TABLET. PO SCH (08:31)
[2016-08-18] MEDS: LISINOPRIL 5 MG TABLET. PO SCH (08:32)
--- NOTE | 2016-08-18 08:52 | PDOC ---
Infectious Disease Note Subjective Subjective pt feeling better ROS ROS GEN: Denies fevers, chills, sweats HEENT: Denies blurred vision, sore throat CV: Denies chest pain RESP: Denies shortness of air, cough GI: Denies n/v/d NEURO: Denies confusion, dizziness MSK: Denies weakness, joint pain/swelling Vital Sign Vital Signs Vital Signs Date Time Temp Pulse Resp B/P (MAP) Pulse Ox O2 Delivery O2 Flow Rate FiO2 08/18/16 08:32 93 105/70 08/18/16 07:00 96.3 16 96 Room Air 96.3 Physical Exam PHYSICAL EXAM GENERAL: NAD, Alert HEENT: PERRL, OC/OP NECK: Supple, no JVD, no LN LUNGS: Clear HEART: S1S2, no gallop, no murmur ABD: Soft, NT, no organomegaly, no rebound EXT: No edema, no cyanosis PARKING ENFORCEMENT OFFICER: Alert, oriented x 3, no focal neurologic deficit SKIN: No rash IV: ok Labs Lab Laboratory Tests Test 08/17/16 11:10 08/17/16 17:07 08/17/16 20:27 08/18/16 03:13 Glucose (Fingerstick) 240 mg/dL (70-99) 181 mg/dL (70-99) 232 mg/dL (70-99) White Blood Count 11.6 x10^3/uL (4.0-11.0) Red Blood Count 4.77 x10^6/uL (4.30-5.70) Hemoglobin 13.5 g/dL (13.0-17.5) Hematocrit 39.3 % (39.0-53.0) Mean Corpuscular Volume 83 fL (79-100) Mean Corpuscular Hemoglobin 28 pg (25-35) Mean Corpuscular Hemoglobin Concent 34 g/dL (31-37) Red Cell Distribution Width 13.0 % (11.5-14.5) Platelet Count 193 x10^3/uL (140-400) Neutrophils (%) (Auto) 63 % (31-73) Lymphocytes (%) (Auto) 30 % (24-48) Monocytes (%) (Auto) 6 % (0-9) Eosinophils (%) (Auto) 1 % (0-3) Basophils (%) (Auto) 0 % (0-3) Neutrophils # (Auto) 7.3 x10^3uL (1.8-7.7) Lymphocytes # (Auto) 3.5 x10^3/uL (1.0-4.8) Monocytes # (Auto) 0.7 x10^3/uL (0.0-1.1) Eosinophils # (Auto) 0.1 x10^3/uL (0.0-0.7) Basophils # (Auto) 0.0 x10^3/uL (0.0-0.2) Test 08/18/16 03:15 08/18/16 07:20 Sodium Level 142 mmol/L (136-145) Potassium Level 3.8 mmol/L (3.5-5.1) Chloride Level 106 mmol/L (98-107) Carbon Dioxide Level 28 mmol/L (21-32) Anion Gap 8 (6-14) Blood Urea Nitrogen 21 mg/dL (8-26) Creatinine 0.9 mg/dL (0.7-1.3) Estimated GFR (Cockcroft-Gault) 93.9 Glucose Level 135 mg/dL (70-99) Calcium Level 8.4 mg/dL (8.5-10.1) Glucose (Fingerstick) 145 mg/dL (70-99) Micro BLOOD CULTURE PRL Final Final report BLD CULT RESULT 1 Final Comment Coagulase negative Staphylococcus species. Recovered from anaerobic bottle only. BLD CULT RESULT 2 Final Comment Viridans streptococcus group Recovered from aerobic bottle only. GROWTH IN 1 OF 2 SETS, PROBABLE SKIN CONTAMINATION Performed at: [facility] [address], [place], [place] [id number] Sales Forecast Analyst: Kendal Grewal MD, Phone: [phone] Objective Assessment Rt second toe callous with ulcer and infection, mri + for osteo,, s/p partial amputation Rt second toe cellulitis with lymphangitic spread BC + G + cocci,, contaminant DM with poor control Plan Plan of Care change to po vantin 5 days bs control d/c DONYA Barillas MD August 18, 2016 08:52
[2016-08-18] MEDS ORDERED: CEFP100T PO (10:50)
[2016-08-18 11:09] VITALS: BP 132/91
--- NOTE | 2016-08-18 11:49 | PDOC3 ---
Discharge Summary [facility] Date of Admission: Aug 13, 2016 Discharge Date: August 18, 2016 Admitting Diagnosis 1. 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 Type 2 diabetes mellitus. 3. Hypertension. 4. bacteremia (possible contamination) Problems: Final Diagnosis CONSULTS id ortho Procedures right 2nd toe partial amputation Brief Hospital Course Mr. Garcia is a 41 old M, comes for right 2nd toe infection for 1 week and bacteremia from previous ER visit. MRI showed + osteomyelitis. Pt got vanco and ceftriaxone for a few days. He also got right 2nd toe partial amputation, wound closed, healing well, no pain. the bacteremia is likely contamination. dc home with vantin for another 5ds. avoid using toes for 30ds as per ortho. fu with ortho for stiches in 1 week. dc time 35min General: Alert, Oriented X3, Cooperative Heart: Regular rate, Normal S1, Normal S2 Lungs: Clear Abdomen: Normal bowel sounds Extremities: Other (right 2nd toe post op , clean dressing) Patient History: Myasthenia gravis 34 MOTHER Problems: Disposition home CONDITION AT DISCHARGE: Improved Diet regular Scheduled Atorvastatin Calcium (Atorvastatin Calcium), 10 MG PO HS, (Reported) Cefpodoxime Proxetil (Cefpodoxime Proxetil), 200 MG PO BID Dulaglutide (Trulicity), 0.75 MG SQ WEEKLY, (Reported) Lisinopril (Lisinopril), 5 MG PO DAILY, (Reported) Discontinued Medications Cephalexin (Keflex), 500 MG PO QID Doxycycline Hyclate (Doxycycline Hyclate), 1 CAP PO BID Follow Up ortho in 1 week FRANCES OLIVO MD August 18, 2016 11:49
--- NOTE | 2016-08-22 17:09 | PATHOLOGY ---
PATHOLOGY REPORT * * * * * * * * FINAL DIAGNOSIS: Segments of toe, right second toe amputation: - Focal ulceration of skin with acute cellulitis and focal osteomyelitis. (DONNELLM:; d/t: 08/22/16) REPORT ELECTRONICALLY SIGNED BY: Tru Kevin M.D. DATE/TIME: 08/22/2016 17:08 * * * * * * * * GROSS PATHOLOGY: Received in formalin labeled "right second toe" are multiple fragments of skin and subcutaneous bone. There is transected tarsal bone centrally. The largest fragment is 2.0 x 1.5 x 1.0 cm in greatest dimension. Smaller segments are 1.5 x 1.0 x 0.3 cm. A sales and marketing representative section is submitted in cassette A1. (MECHELLE:sheryl; d/t: 08/18/2016) After initial microscopic examination, additional sales and marketing representative sections are submitted in cassette A2, following decalcification. (CAA; 08/21/2016) INITIAL CPT CODE(S): A; 51350, 27480 Professional services [place] [place] [address] Technical services performed by [facility] at [address] [place] [address]. SPECIMEN(S) RECEIVED: A.Right second toe CLINICAL HISTORY: Osteomyelitis PATIENT: MCKENZIE SMART /AGE: 1204/02/1975 (Age: 41) PATIENT #: [id number] ALT CASE #: SPECIMEN COLLECTION DATE: 08/16/2016 SPECIMEN RECEIVED DATE: 08/17/2016 [facility] - [address] [place] [address] - PHONE: [phone] * * * END OF REPORT * * *
== END 2016-08-18 13:10 | disposition home or self-care (01) | DRG 617 ==
LOC: 4 NORTH 14:23
PROVIDERS: ADMIT Internal Medicine; ATTEND Internal Medicine
PROC: 0Y6S0Z3 Detachment at Left 2nd Toe, Low, Open Approach (ICD-10-PCS; principal; 2016-08-16 18:00)
DX: E11.69 Type 2 diabetes mellitus with other specified complication (principal); R78.81 Bacteremia; M86.9 Osteomyelitis, unspecified; E11.621 Type 2 diabetes mellitus with foot ulcer; I10 Essential (primary) hypertension; B95.8 Unspecified staphylococcus as the cause of diseases classified elsewhere; L97.519 Non-pressure chronic ulcer of other part of right foot with unspecified severity; E11.65 Type 2 diabetes mellitus with hyperglycemia; L03.031 Cellulitis of right toe; B96.89 Other specified bacterial agents as the cause of diseases classified elsewhere; G70.00 Myasthenia gravis without (acute) exacerbation; L84 Corns and callosities; Z83.3 Family history of diabetes mellitus
CPT/HCPCS: 36415; 73630; 73720; 80048; 80202; 82947; 83036; 85007; 85027; 85651; 86140; 87040; 94250; A9585; J0696; J1100; J1650; J1815; J2405; J2704; J3010; J3370; J7040; Q0163

== ENCOUNTER 2018-12-21 20:58 | Emergency (ER) | payer BC ==
[~2018-12-21] VITALS: Ht 172.7 cm; Wt 95.3 kg
[~2018-12-21 20:58] MED LIST changes: +ATOR10TA60 PO; +CEFP100T PO; +DULA0.75 SQ; +LISI-338 PO
[2018-12-21 21:30] VITALS: BP 143/92
--- NOTE | 2018-12-21 23:47 | RAD ---
ANKLE RIGHT 3V DATE: 12/21/2018 10:13 PM INDICATION: Pain and swelling COMPARISON: Foot radiograph 08/13/2016 FINDINGS: Bones: There is no evidence of acute fracture or dislocation. Tiny ossific density inferior to the medial malleolus appears chronic. Joints: The ankle mortise is congruent. No widening of the distal tibiofibular syndesmosis. Miscellaneous: None. IMPRESSION: No evidence of acute fracture. Electronically signed by: Jamel Herzog MD (12/21/2018 11:44 PM) [facility]
--- NOTE | 2018-12-21 23:51 | PHYS DOC ---
Past Medical History Past Medical History: Diabetes-Type II, Hypertension Past Surgical History: Tonsillectomy Alcohol Use: None Drug Use: None Adult General Chief Complaint Chief Complaint: ANKLE PROBLEM HPI HPI Patient is a 43 year old male] who presents with [right ankle pain. 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 Denies any falls, denies twisting it, but also relates he has history of diabetes and he does not have good sensation in his lower extremities. States he does not remember if he had injured this or not previously. States he has tried some ibuprofen earlier, and it did seem to help a little bit. Denies any additional concerns or complaints today] Review of Systems Review of Systems Constitutional: Denies fever or chills [] Musculoskeletal: Denies back pain or joint pain other than to right ankle[] Integument: Denies rash or skin lesions []does report he does have a lesion to his right great toe, he has been monitoring it Neurologic: Denies headache, focal weakness or sensory changes [] All other systems were reviewed and found to be within normal limits, except as documented in this note. Allergies Allergies Allergies Coded Allergies Type Severity Reaction Last Updated Verified No Known Drug Allergies 08/16/16 No Physical Exam Physical Exam Constitutional: Well developed, well nourished, no acute distress, non-toxic appearance. [] Skin: Warm, dry, no erythema, no rash. Lesion noted to right great toe, distal, appears abrasion, no active bleeding, no signs of infection, purulence, erythema surrounding.[] Back: No tenderness, no CVA tenderness. [] Extremities: Minimal swelling noted medially to right ankle, brisk capillary refill, sensation intact, able to flex and extend, does report discomfort on palpation to lateral aspect malleolus.[] Neurologic: Alert and oriented X 3, normal motor function, normal sensory function, no focal deficits noted. [] Psychologic: Affect normal, judgement normal, mood normal. [] Current Patient Data Vital Signs Vital Signs Date Time Temp Pulse Resp B/P (MAP) Pulse Ox O2 Delivery O2 Flow Rate FiO2 12/21/18 21:30 96.8 98 16 143/92 (109) 99 Room Air 96.8 EKG EKG [] Radiology/Procedures Radiology/Procedures No acute fracture or abnormality is noted, per Dr. Rees, at 2335[] Course & Med Decision Making Course & Med Decision Making Pertinent Labs and Imaging studies reviewed. (See chart for details) [Discussed with patient importance of monitoring his blood sugar, ensuring remains control. Discussed importance of using Hugo wrap, following up the primary care provider. Discussed rest,dictation discomfort he should follow-up with orthopedic the next week or 2.] Dragon Disclaimer Dragon Disclaimer This electronic medical record was generated, in whole or in part, using a voice recognition dictation system. Departure Departure Impression: Primary Impression: Right ankle strain Disposition: HOME, SELF-CARE Referrals: [facility] (PCP) Patient Instructions: Ankle Pain Additional Instructions: As we discussed, keep your blood sugar keep it under control. He continues Tylenol for your discomfort in her legs. Wear the Hugo wrap for the next couple days and try to stay off your feet for the next day or 2 to give your ligaments and ankle a chance to heal. Make sure you are following up with her primary care provider. Follow-up with your primary care provider if you continues to have discomfort Problem Qualifiers Primary Impression: Right ankle strain Encounter type: initial encounter Qualified Codes: S96.911A - Strain of unspecified muscle and tendon at ankle and foot level, right foot, initial encounter KAVON GR APRN Dec 21, 2018 23:51
== END 2018-12-21 23:55 | disposition home or self-care (01) ==
LOC: ER 20:58
DX: S96.911A Strain of unspecified muscle and tendon at ankle and foot level, right foot, initial encounter (principal); X50.3XXA Overexertion from repetitive movements, initial encounter; Y93.01 Activity, walking, marching and hiking; Y92.69 Other specified industrial and construction area as the place of occurrence of the external cause; Y99.0 Civilian activity done for income or pay
CPT/HCPCS: 73610; 99284